=== PATIENT | female | born 1995 | race Caucasian/White ===

== ENCOUNTER 2017-11-05 10:27 | Outpatient (CLI) | payer OTHER ==
[2017-11-05 11:12] VITALS: BP 115/56; PULSE 96; RESP 16; TEMP 97.6
[2017-11-05 11:48] LABS: Appearance,Urine Clear (Clear); Bilirubin,Urine Negative (Negative); Blood,Urine Negative (Negative); Color,Urine Yellow; Glucose,Urine (UA) Negative (Negative); Ketones,Urine Negative (Negative); Leukocyte Esterase,Urine Moderate (Negative); Mucus,Urine Rare /hpf; Nitrite,Urine Negative (Negative); Protein,Urine Trace (Negative); RBC,Urine <1 /hpf (0-5); Specific Gravity,Urine 1.022 (1.001-1.035); Squamous Epithelial Cell,Urine 1 /hpf (0-4); Urobilinogen,Urine <2.0 mg/dL (<2.0); WBC,Urine 9 /hpf (0-5)
--- NOTE | 2017-11-17 07:00 | P.MSEPDOC ---
Presenting Problems - Arrival Data Date of Arrival on Unit: 11/05/17 Time of Arrival on Unit: 10:40 Mode of Transport: Ambulatory - Complaint OB-Reason for Admission/Chief Complaint: Possible Onset of Labor Medical History - Information : 3 Para: 2 Term: 2 : 0 Abortions: Spontaneous or Elective: 0 Number of Living Children: 2 - Gestational Age Gestational Age by SHERRON (wks/days): 26 Weeks and 3 Days - History Comment: stomach ? contx cramping all night. 26 weeks. pt fall a few days ago. did not hit abd. fell on hands and knees didnt report. did not hurt Review of Systems - Review of Systems Constitutional: No problems Breast: No problems ENT: No problems Cardiovascular: No problems Respiratory: No problems Gastrointestinal: No problems Genitourinary: No problems Musculoskeletal: No problems Neurological: No problems Skin: No problems Vital Signs - Temperature Temperature: 97.6 F Temperature Source: Tympanic - Pulse Apical Pulse Rate: 96 Pulse Assessment Method: Automatic Cuff - Respirations Respiratory Rate: 16 Oxygen Delivery Method: Room Air - Blood Pressure Right Arm Blood Pressure: 115/56 Blood Pressure Mean: 75 Blood Pressure Source: Automatic Cuff Medical Screen Scoring (Pre) - Uterine Contractions Frequency: N/A Duration: N/A Intensity: N/A - Maternal Vital Signs Maternal Temperature: N/A Maternal Blood Pressure: N/A Signs of Preeclampsia: N/A Maternal Respirations: N/A - Pain Assessment Pain Location and Character: Generalized, Abdomen Pain Scale Used: Numeric (1 - 10) Pain Intensity: 4 Pain Description: Cramping Pain Frequency: Intermittent Pain Behavior: Vocalization Pain Aggravating Factors: Activity, Standing - Maternal Trauma Maternal Trauma: N/A - Assessment Heart Rate - NICHD Category: Category I (Normal) = 0 Position: N/A Station: N/A - Total Score Total Score (Pre): 0 - Level of Risk Level of Risk: Low (0-5) Medical Screen Scoring (Post) - Cervical Exam Dilation: 0 cm = 0 Effacement: Exam Deferred Membranes: Intact - Uterine Contractions Frequency: N/A - Maternal Vital Signs Signs of Preeclampsia: N/A Maternal Respirations: N/A - Pain Assessment Pain Location and Character: Generalized, Abdomen Pain Scale Used: Numeric (1 - 10) Pain Intensity: 2 Pain Description: Cramping Pain Frequency: Intermittent - Maternal Trauma Maternal Trauma: N/A - Assessment Heart Rate: 150 Heart Rate - NICHD Category: Category I (Normal) = 0 - Total Score Total Score (Post): 0 - Post Treatment Level of Risk Post Treatment Level of Risk: Low (0-5) Physician Notification (Post) - Physician Notified Physician Notified Date: 11/05/17 Physician Notified Time: 12:30 Physician/Practitioner Notified:: rakel Spoke With: rakel New Order Received: (november discharge home with rx for keflex) - Notification Comment Comment: to see on tuesday for scheduled appt. return here if concerns before Disposition - Disposition OB Disposition: Discharge to home Discharge Date: 11/05/17 Discharge Time: 12:40 I agree with the RN Medical Screening Exam: Yes Risk & Benefit of care provided described in d/c instruction: Yes Diagnosis: FALSE LABOR BEFORE 37 COMPLETED WEEKS OF GEST, SECOND TRI
== END 2017-11-05 12:40 | disposition home or self-care (01) ==
LOC: FBPOP 10:27
PROVIDERS: ATTEND Obstetrics & Gynecology
DX: O47.03 False labor before 37 completed weeks of gestation, third trimester (principal); Z3A.26 26 weeks gestation of pregnancy
CPT/HCPCS: 82731; 81001; G0463; 99213

== ENCOUNTER → 2017-12-20 | Outpatient (CLI) | payer OTHER ==
[2017-12-20 12:21] LABS: HCT 34.4 % (34.0-46.0); HGB 11.7 gm/dL (11.4-16.0); MCHC 33.9 g/dL (31.0-37.0); MCV 88.4 fL (80.0-100.0); Mean Platelet Volume 7.4; Platelet Count 211 k/uL (150-450); RDW 13.8 % (11.5-15.5); WBC 13.2 k/uL (3.8-10.6)
== END | disposition home or self-care (01) ==
LOC: LABWHC1 11:09
PROVIDERS: ATTEND Obstetrics & Gynecology
DX: Z34.82 Encounter for supervision of other normal pregnancy, second trimester (principal); Z3A.00 Weeks of gestation of pregnancy not specified
CPT/HCPCS: 36415; 82950; 84443; 85027

== ENCOUNTER → 2017-12-23 | Outpatient (CLI) | payer SELFPAY ==
[2017-12-23 12:12] LABS: T4, Free (Free Thyroxine) 0.91 ng/dL (0.78-2.19)
[2017-12-23 12:28] LABS: Glucose 3 Hour, Gest 105 mg/dL
[2017-12-23 16:51] LABS: Thyroid Peroxidase Antibodies <28.0 U/mL (0.0-60.0)
== END | disposition home or self-care (01) ==
LOC: LABWHC1 08:25
PROVIDERS: ATTEND Obstetrics & Gynecology
DX: O24.419 Gestational diabetes mellitus in pregnancy, unspecified control (principal); O99.280 Endocrine, nutritional and metabolic diseases complicating pregnancy, unspecified trimester; E06.2 Chronic thyroiditis with transient thyrotoxicosis; Z3A.00 Weeks of gestation of pregnancy not specified
CPT/HCPCS: 36415; 82951; 82952; 84439; 84481; 86376; 86800

== ENCOUNTER 2017-12-28 15:24 | Outpatient (CLI) | payer SELFPAY ==
[2017-12-28 15:54] LABS: Appearance,Urine Clear (Clear); Bilirubin,Urine Negative (Negative); Blood,Urine Negative (Negative); Color,Urine Colorless; Glucose,Urine (UA) Negative (Negative); Ketones,Urine Negative (Negative); Leukocyte Esterase,Urine Negative (Negative); Nitrite,Urine Negative (Negative); Protein,Urine Negative (Negative); Specific Gravity,Urine 1.003 (1.001-1.035); Urobilinogen,Urine <2.0 mg/dL (<2.0)
[2017-12-28 16:49] VITALS: BP 131/61; PULSE 115; RESP 17; TEMP 97.7
--- NOTE | 2018-01-24 22:13 | P.MSEPDOC ---
Presenting Problems - Arrival Data Date of Arrival on Unit: 12/28/17 Time of Arrival on Unit: 15:25 Mode of Transport: Ambulatory - Complaint OB-Reason for Admission/Chief Complaint: Rule Out PROM Comment: Also presents with abdominal pressure, pelvic pressure, and back pressure. Medical History - Information : 3 Para: 2 Term: 2 : 0 Abortions: Spontaneous or Elective: 0 Number of Living Children: 2 - Gestational Age Gestational Age by SHERRON (wks/days): 34 Weeks and 0 Days - History Complications: Prior Review of Systems - Review of Systems Constitutional: No problems Breast: No problems ENT: No problems Cardiovascular: No problems Respiratory: No problems Gastrointestinal: No problems Genitourinary: No problems Musculoskeletal: No problems Neurological: No problems Skin: No problems Vital Signs - Temperature Temperature: 97.7 F Temperature Source: Temporal Artery Scan - Pulse Pulse Oximetery Pulse Rate: 115 Pulse Assessment Method: Pulse Oximetry - Respirations Respiratory Rate: 17 Oxygen Delivery Method: Room Air O2 Sat by Pulse Oximetry: 97 - Blood Pressure Right Arm Blood Pressure: 131/61 Blood Pressure Mean: 84 Blood Pressure Source: Automatic Cuff Medical Screen Scoring (Pre) - Cervical Exam Dilation: 0 cm = 0 Membranes: Intact - Uterine Contractions Frequency: N/A Duration: N/A Intensity: N/A - Maternal Vital Signs Maternal Temperature: N/A Maternal Blood Pressure: N/A Signs of Preeclampsia: N/A Maternal Respirations: N/A - Pain Assessment Pain Scale Used: Numeric (1 - 10) Pain Intensity: 0 - Maternal Trauma Maternal Trauma: N/A - Assessment Baseline FHR: 140 Heart Rate - NICHD Category: Category I (Normal) = 0 NST: Reactive Position: N/A Station: N/A - Total Score Total Score (Pre): 0 - Level of Risk Level of Risk: Low (0-5) Physician Notification (Pre) - Physician Notified Physician Notified Date: 12/28/17 Physician Notified Time: 16:20 Physician/Practitioner Notifed:: Ameya Spoke With: Ameya New Order Received: Yes (discharge home) Disposition - Disposition OB Disposition: Discharge to home Discharge Date: 12/28/17 Discharge Time: 16:25 I agree with the RN Medical Screening Exam: Yes Risk & Benefit of care provided described in d/c instruction: Yes Diagnosis: FALSE LABOR BEFORE 37 COMPLETED WEEKS OF GEST, THIRD TRI
== END 2017-12-28 16:25 | disposition home or self-care (01) ==
LOC: FBPOP 15:24
PROVIDERS: ATTEND Obstetrics & Gynecology
DX: O47.03 False labor before 37 completed weeks of gestation, third trimester (principal); Z3A.34 34 weeks gestation of pregnancy
CPT/HCPCS: 59025; 81003; 84112; 99213

== ENCOUNTER 2018-01-05 12:58 | Outpatient (CLI) | payer OTHER ==
[2018-01-05 14:35] VITALS: BP 124/59; PULSE 103; RESP 16; TEMP 98
--- NOTE | 2018-02-13 23:34 | P.MSEPDOC ---
Presenting Problems - Arrival Data Date of Arrival on Unit: 01/05/18 Time of Arrival on Unit: 12:55 Mode of Transport: Ambulatory Vital Signs - Temperature Temperature: 98 F Temperature Source: Oral - Pulse Right Brachial Pulse Rate: 103 Pulse Assessment Method: Automatic Cuff - Respirations Respiratory Rate: 16 Oxygen Delivery Method: Room Air O2 Sat by Pulse Oximetry: 98 - Blood Pressure Right Arm Blood Pressure: 124/59 Blood Pressure Mean: 80 Blood Pressure Source: Automatic Cuff Medical Screen Scoring (Post) - Cervical Exam Dilation: Exam Deferred Effacement: Exam Deferred - Uterine Contractions Frequency: N/A Duration: N/A Intensity: N/A - Maternal Vital Signs Maternal Temperature: N/A Maternal Blood Pressure: N/A Signs of Preeclampsia: N/A Maternal Respirations: N/A - Pain Assessment Pain Location and Character: Head Pain Scale Used: Numeric (1 - 10) Pain Intensity: 4 Pain Description: *Acute Pain Frequency: Occasional Pain Duration Units: Days Pain Behavior: None Exhibited Pain Aggravating Factors: None Pharmacological Interventions: Medication - Maternal Trauma Maternal Trauma: N/A - Assessment Heart Rate: 145 Heart Rate - NICHD Category: Category I (Normal) = 0 NST: Reactive Position: N/A Station: N/A - Total Score Total Score (Post): 0 - Post Treatment Level of Risk Post Treatment Level of Risk: Low (0-5) Physician Notification (Post) - Physician Notified Physician Notified Date: 01/05/18 Physician Notified Time: 13:26 Physician/Practitioner Notified:: magi Spoke With: magi New Order Received: Yes - Notification Comment Comment: monitor until reactive strip, pt may be discharged and seen in [place] if pt would like further evaluation Disposition - Disposition OB Disposition: Discharge to home Discharge Date: 01/05/18 Discharge Time: 14:15 I agree with the RN Medical Screening Exam: Yes Risk & Benefit of care provided described in d/c instruction: Yes Diagnosis: SHORTNESS OF BREATH
== END 2018-01-05 14:15 | disposition home or self-care (01) ==
LOC: FBPOP 12:58
PROVIDERS: ATTEND Obstetrics & Gynecology
DX: O26.899 Other specified pregnancy related conditions, unspecified trimester (principal); R06.02 Shortness of breath
CPT/HCPCS: 59025; 99213

== ENCOUNTER 2018-01-27 14:03 | Outpatient (CLI) | payer SELFPAY ==
[2018-01-27 14:47] VITALS: BP 115/65; PULSE 88; RESP 18; TEMP 99
--- NOTE | 2018-01-28 11:24 | P.MSEPDOC ---
Presenting Problems - Arrival Data Date of Arrival on Unit: 01/27/18 Time of Arrival on Unit: 14:03 Mode of Transport: Ambulatory - Complaint OB-Reason for Admission/Chief Complaint: Possible Onset of Labor, Rule Out SROM Medical History - Information : 3 Para: 2 Term: 2 : 0 Abortions: Spontaneous or Elective: 0 Number of Living Children: 2 - Gestational Age Gestational Age by SHERRON (wks/days): 38 Weeks and 2 Days - History Complications: Prior Review of Systems - Review of Systems Constitutional: No problems Breast: No problems ENT: No problems Cardiovascular: No problems Respiratory: No problems Gastrointestinal: Constipation Genitourinary: No problems Musculoskeletal: No problems Neurological: No problems Skin: No problems Vital Signs - Temperature Temperature: 99.0 F Temperature Source: Oral - Pulse Pulse Oximetery Pulse Rate: 88 Pulse Assessment Method: Pulse Oximetry - Respirations Respiratory Rate: 18 O2 Sat by Pulse Oximetry: 97 - Blood Pressure Right Arm Sitting Blood Pressure: 115/65 Blood Pressure Mean: 81 Blood Pressure Source: Automatic Cuff Medical Screen Scoring (Pre) - Cervical Exam Dilation: 0 cm = 0 Membranes: Intact - Uterine Contractions Frequency: Scheduled / = 6 Duration: > 40 seconds = 2 - Pain Assessment Pain Location and Character: Abdomen Pain Scale Used: Numeric (1 - 10) Pain Intensity: 1 Pain Description: *Acute, Pressure Pain Radiation Location: no Pain Frequency: Intermittent Pain Duration: 2 Pain Duration Units: Minutes Pain Behavior: None Exhibited - Maternal Trauma Maternal Trauma: N/A - Assessment Baseline FHR: 140 Heart Rate - NICHD Category: Category I (Normal) = 0 NST: Reactive Position: N/A Station: N/A - Total Score Total Score (Pre): 8 - Level of Risk Level of Risk: Medium (6-9) Medical Screen Scoring (Post) - Cervical Exam Dilation: 1-3 cm = 1 Effacement: Exam Deferred Membranes: Intact - Uterine Contractions Frequency: > or = 36 weeks =2 Duration: > 40 seconds = 2 Intensity: N/A - Maternal Vital Signs Maternal Temperature: N/A Maternal Blood Pressure: N/A Signs of Preeclampsia: N/A Maternal Respirations: N/A - Pain Assessment Pain Location and Character: Abdomen Pain Scale Used: Numeric (1 - 10) Pain Intensity: 4 Pain Management Goal: 0 Pain Description: Cramping Pain Radiation Location: n/a Pain Frequency: Intermittent Pain Duration: 1 Pain Duration Units: Hours Pain Behavior: Vocalization Effects of Pain: n/a Pain Aggravating Factors: Contractions Pharmacological Interventions: PRN Medication - Maternal Trauma Maternal Trauma: N/A - Assessment Heart Rate: 130 Heart Rate - NICHD Category: Category I (Normal) = 0 NST: Reactive Position: N/A Station: N/A - Total Score Total Score (Post): 5 - Post Treatment Level of Risk Post Treatment Level of Risk: Low (0-5) Physician Notification (Post) - Physician Notified Physician Notified Date: 01/27/18 Physician Notified Time: 15:42 Physician/Practitioner Notified:: Raymond Spoke With: Raymond New Order Received: Yes (discharge) Disposition - Disposition OB Disposition: Discharge to home Discharge Date: 01/27/18 Discharge Time: 15:45 I agree with the RN Medical Screening Exam: Yes Risk & Benefit of care provided described in d/c instruction: Yes Diagnosis: FALSE LABOR AT OR AFTER 37 COMPLETED WEEKS OF GESTATION
== END 2018-01-27 15:45 | disposition home or self-care (01) ==
LOC: FBPOP 14:03
PROVIDERS: ATTEND Obstetrics & Gynecology
DX: O47.1 False labor at or after 37 completed weeks of gestation (principal); Z3A.38 38 weeks gestation of pregnancy
CPT/HCPCS: 59025; 99213

== ENCOUNTER 2018-02-03 06:30 | Inpatient (IN) | payer OTHER ==
[2018-02-01 17:46] VITALS: BMI 41.1
[2018-02-03] MEDS ORDERED: LACTATED RINGERS 1,000 ML IV ONE (06:47)
[2018-02-03] MEDS ORDERED: ceFAZolin IN SWFI 2 GM/20 ML SYRINGE IVP ONE (06:47)
[2018-02-03] MEDS ORDERED: CITRIC ACID-SODIUM CITRATE 15 ML CUP PO ONE (06:47)
[2018-02-03] MEDS ORDERED: LACTATED RINGERS 1,000 ML IV SCH ×2 (07:00→09:00)
[2018-02-03 07:27] LABS: Basophils # (A) 0.1 k/uL (0-0.2); Basophils % (A) 1 %; Eosinophils # (A) 0.2 k/uL (0-0.7); Eosinophils % (A) 1 %; HCT 36.6 % (34.0-46.0); HGB 12.2 gm/dL (11.4-16.0); Lymphocytes # (A) 2.3 k/uL (1.0-4.8); Lymphocytes % (A) 17 %; MCH 28.6 pg (25.0-35.0); MCHC 33.4 g/dL (31.0-37.0); MCV 85.7 fL (80.0-100.0); Mean Platelet Volume 7.9; Monocytes # (A) 0.4 k/uL (0-1.0); Monocytes % (A) 3 %; Neutrophils # (A) 10.6 k/uL (1.3-7.7); Neutrophils % (A) 77 %; Platelet Count 227 k/uL (150-450); RBC 4.27 m/uL (3.80-5.40); RDW 14.2 % (11.5-15.5); WBC 13.7 k/uL (3.8-10.6)
[2018-02-03] MEDS ORDERED: PHENYLEPHRINE-0.9% NACL SYG 1 MG/10 ML SYRINGE ONE (08:03)
[2018-02-03] MEDS ORDERED: NALBUPHINE 10 MG/ML VIAL (10ML MDV) ONE (08:03)
[2018-02-03] MEDS ORDERED: ONDANSETRON 4 MG/2 ML VIAL ONE (08:03)
[2018-02-03] MEDS ORDERED: MORPHINE SULFATE (PF) 0.3 MG/0.3 ML SYR ONE (08:03)
[2018-02-03] MEDS ORDERED: OXYTOCIN 10 UNIT/ML 1 ML VIAL ONE (08:03)
[2018-02-03] MEDS ORDERED: KETOROLAC 30 MG/ML 1 ML VIAL ONE (08:03)
[2018-02-03] MEDS ORDERED: ZOLPIDEM 5 MG TAB PO PRN (08:46)
[2018-02-03] MEDS ORDERED: KETOROLAC 30 MG/ML 1 ML VIAL IVP PRN (08:46)
[2018-02-03] MEDS ORDERED: diphenhydrAMINE 50 MG CAP PO PRN (08:46)
[2018-02-03] MEDS ORDERED: METOCLOPRAMIDE 5 MG/ML 2 ML VIAL IVP PRN (08:46)
[2018-02-03] MEDS ORDERED: NALOXONE 0.4 MG/ML 1 ML VIAL IV PRN (08:46)
[2018-02-03] MEDS ORDERED: ONDANSETRON 4 MG/2 ML VIAL IVP PRN (08:46)
[2018-02-03] MEDS ORDERED: MEASLES-MUMPS-RUBELLA VACC/PF 12,500 UNIT/0.5 ML VIAL SQ ONE (08:46)
[2018-02-03] MEDS ORDERED: diphenhydrAMINE 25 MG CAP PO PRN (08:46)
[2018-02-03] MEDS ORDERED: diphenhydrAMINE 50 MG/ML 1 ML VIAL IVP PRN ×2 (08:46)
[2018-02-03] MEDS ORDERED: HYDROcodone/APAP 5-325MG 1 EACH TAB PO PRN (08:46)
--- NOTE | 2018-02-03 08:49 | P.HPOB ---
History of Present Illness H&P Date: 02/03/18 Chief Complaint: at term: Prior section Patient is a 23-year-old at 39 weeks gestation arise for repeat section. Her prior and this . B, K by macrosomia. She also had some thyroid abnormalities that have been reevaluated. No other significant findings during the pertinent labs did include O+ blood type Rh antibody was negative, rubella was immune, hepatitis B surface antigen as well as RPR and HIV were all negative. Her hemoglobin A1c was normal and she did pass her Glucola screen. Quad screen was also negative. Past Medical History Past Medical History: GERD/Reflux Additional Past Medical History / Comment(s): GERD WITH , CONSTIPATION. , CURRENT - SCHEDULED. enlarged thyroid History of Any Multi-Drug Resistant Organisms: None Reported Past Surgical History: Section Past Anesthesia/Blood Transfusion Reactions: No Reported Reaction Additional Past Anesthesia/Blood Transfusion Reaction / Comment(s): has never had anesthesia Past Psychological History: Anxiety Smoking Status: Former smoker Past Alcohol Use History: None Reported Additional Past Alcohol Use History / Comment(s): QUIT SMOKING 1 1/2 YEARS AGO, SMOKED FOR 1 YEAR. Past Drug Use History: None Reported - Past Family History Father Family Medical History: Myocardial Infarction (DC) Medications and Allergies Home Medications Medication Instructions Recorded Confirmed Type No Known Home Medications 01/27/18 02/03/18 History Allergies Allergy/AdvReac Type Severity Reaction Status Date / Time No Known Allergies Allergy Verified 02/03/18 06:47 Exam Osteopathic Statement: *. No significant issues noted on an osteopathic structural exam other than those noted in the History and Physical/Consult. Vital Signs Temp Pulse Resp BP Pulse Ox 02/03/18 06:49 96.1 F L 97 16 130/69 97 - OBG Physical Exam Breast: both: normal (no masses) Abdomen: bowel sounds normal, no diffuse tenderness, no bruit present, no guarding noted, no hepatomegaly, no splenomegaly, no mass Vulva: both: normal Vagina: normal moisture, no discharge Cervix: no lesion, no discharge Uterus: normal size, normal contour Adnexa: both: normal Anus/Rectum: normal perianal skin, no rectal mass, no hemorrhoids, heme negative Results Result Diagrams: 02/03/18 07:00 Abnormal Lab Results - Last 24 Hours (Table) 02/03/18 Range/Units 07:00 WBC 13.7 H (3.8-10.6) k/uL Neutrophils # 10.6 H (1.3-7.7) k/uL
--- NOTE | 2018-02-03 08:53 | P.OP ---
Date of Procedure: 02/03/18 Preoperative Diagnosis: Intrauterine 39 weeks: Prior section: Macrosomia Postoperative Diagnosis: Same Procedure(s) Performed: Repeat low transverse section Anesthesia: spinal Surgeon: Prem Andrade Coat Operator #1: Ailyn Winters Estimated Blood Loss (ml): 500 IV fluids (ml): 1,000 Urine output (ml): 200 Pathology: none sent Condition: stable Disposition: floor Operative Findings: Female scores of 8 and 9 at one and 5 minutes respectively and the weight was 9 lbs. 14 oz. Description of Procedure: Patient was taken to the operating suite where a spinal anesthetic was found be adequate. She was prepped and draped in normal sterile fashion and placed in the dorsal supine position with leftward tilt. She was very anxious during this process and there is question is whether not the spine was going little bit high. She was given supplemental oxygen but was able to tolerate the remainder the procedure under spinal anesthetic. Initially a Pfannenstiel skin incision was made and this incision was then carried through to underlying layer of the fascia with the second knife. Fascia was then nicked in the midline and this opening was extended laterally with Bowen scissors. Superior and inferior aspect of this incision were then grasped tented up and bluntly and sharply dissected off the rectus muscles. Rectus muscles were then divided midline and blunt dissection the peritoneum was made. This opening was then extended superiorly and inferiorly with good visualization of both bowel bladder. Bladder blade was then placed and the vesicouterine peritoneum was identified and entered with Metzenbaum scissors. This opening was then extended across the face of the uterus with the Metzenbaum scissors and bladder flap was digitally created. Knife was then used to incise uterus and this opening was extended bluntly. Clear fluid is noted. Head was then H medically delivered from left occiput anterior position shoulders were easily delivered out nares bulb suctioned once baby was fully delivered umbilical cord was clamped and cut in usual fashion an nursery personnel was present to assume care. Placenta was then delivered intact and Pitocin was added to the IV. Uterus was then exteriorized cleared of clots and debris and closed in 2 layers with 0 Vicryl suture. Once excellent hemostasis was obtained blood and debris was suctioned from the posterior cul-de-sac and uterus was reinserted into the abdomen. Peritoneal layer was then reapproximated with 0 Vicryl suture fascial layer was closed with 0 Vicryl suture one layer of 3-0 Vicryl was placed in deep subcuticular tissues and the skin was then closed with 3-0 Vicryl suture. Sponge, lap, needle counts were all correct 2. A she was then taken to the recovery room in stable and satisfactory condition.
[2018-02-03] MEDS: SENNOSIDES-DOCUSATE SODIUM 1 EACH TAB PO SCH (22:12)
[2018-02-04] MEDS: IBUPROFEN 600 MG TAB PO PRN ×3 (02:45→15:47)
[2018-02-04 08:07] LABS: Basophils # (A) 0.1 k/uL (0-0.2); Basophils % (A) 0 %; Eosinophils # (A) 0.1 k/uL (0-0.7); Eosinophils % (A) 1 %; HCT 33.2 % (34.0-46.0); Lymphocytes # (A) 2.1 k/uL (1.0-4.8); Lymphocytes % (A) 16 %; MCH 28.9 pg (25.0-35.0); MCHC 33.2 g/dL (31.0-37.0); MCV 86.9 fL (80.0-100.0); Mean Platelet Volume 7.6; Monocytes # (A) 0.5 k/uL (0-1.0); Monocytes % (A) 4 %; Neutrophils % (A) 78 %; Platelet Count 217 k/uL (150-450); RBC 3.82 m/uL (3.80-5.40); RDW 14.5 % (11.5-15.5); WBC 12.9 k/uL (3.8-10.6)
[2018-02-04] MEDS: SENNOSIDES-DOCUSATE SODIUM 1 EACH TAB PO SCH ×2 (08:55→19:25)
--- NOTE | 2018-02-04 11:14 | P.PNOBGPC ---
Subjective - Subjective Principal diagnosis: Status post section postoperative day #1 Interval history: Patient is doing well. She is ambulating. She has not passed flatus or bowel movement yet. She is urinating. Lochia is decreasing. She is working on breast-feeding. Pain is fairly well controlled at this time. Patient reports: Reports appetite normal, Reports voiding normally, Reports pain well controlled, Reports ambulating normally : doing well, bottle feeding Objective - Vital Signs Latest vital signs: Vital Signs Temp Pulse Resp BP Pulse Ox 02/04/18 08:00 97.8 F 76 16 103/66 02/04/18 03:59 97.6 F 82 16 102/59 98 02/04/18 00:00 98.5 F 75 16 113/64 02/03/18 20:00 98.4 F 74 16 117/66 02/03/18 15:37 97.2 F L 67 14 121/56 02/03/18 12:00 97.8 F 76 14 112/54 96 Intake and Output 02/03/18 02/04/18 02/04/18 22:59 06:59 14:59 Intake Total 1500 Output Total 950 800 Balance 550 -800 Intake: Intake, IV Titration 1500 Amount Lactated Ringers 1,000 ml 1500 @ 125 mls/hr IV .Q8H [facility] Rx#:[id number] Output: Urine 950 800 Other: Voiding Method Indwelling Catheter # Voids 1 - Exam Extremities: Present: normal. Absent: tenderness Abdomen: Present: normal appearance, soft (Positive bowel sounds 4). Absent: distention, tenderness Incision: Present: normal, dry, intact. Absent: erythematous Uterus: Present: normal, firm. Absent: tenderness - Labs Labs: Abnormal Lab Results - Last 24 Hours (Table) 02/04/18 Range/Units 07:26 WBC 12.9 H (3.8-10.6) k/uL Hgb 11.0 L (11.4-16.0) gm/dL Hct 33.2 L (34.0-46.0) % Neutrophils # 10.0 H (1.3-7.7) k/uL Assessment and Plan Assessment: Status post section postoperative day #1 Plan: Continue with postoperative care. Encouraged ambulation. Will advance diet as tolerated after flatus.
--- NOTE | 2018-02-04 18:57 | P.PN ---
Progress Note - Text Progress Note Date: 02/04/18 Postoperative day 1 status post section under spinal anesthesia, and intrathecal morphine given for postoperative analgesia, patient doing well, there is no anesthesia related complications, Patient had no headache, vital signs stable , Assessment and plan= postop day 1 status post , doing well there is no anesthesia related complication.
[2018-02-04] MEDS: ACETAMINOPHEN TAB 325 MG TAB PO PRN (19:24)
[2018-02-05] MEDS: IBUPROFEN 600 MG TAB PO PRN ×2 (00:12→12:24)
--- NOTE | 2018-02-05 03:31 | P.DS ---
Providers Date of admission: 02/03/18 06:30 Expected date of discharge: 02/05/18 Attending physician: Prem Andrade Primary care physician: Stated None Hospital Course: This is a 23-year-old female 3 para 2 at 39-0/7 weeks who presented for scheduled repeat section. She underwent a repeat low transverse section under spinal Duramorph anesthesia. She delivered a viable female with scores of 8 at 1 minute and 9 at 5 minutes and weight of 9 lbs. 14 oz. Her postoperative and course have been uncomplicated. Her pain is fairly well controlled with ibuprofen and regular Tylenol. Lochia is decreasing. She is passing flatus. She is bottle feeding. Vital signs are stable. Abdomen soft with positive bowel sounds 4. Incision is clean dry and intact. Extremities show negative Homans. Impression is status post repeat section postoperative day #2. Plan is to discharge home today. Routine postoperative and instructions are given. She is advised to follow up with Dr. Andrade in the office in approximately 1 week for a postoperative check and in 6 weeks for a check. She is advised to call the office if she has any further questions or concerns prior to her appointment times. She will be given a prescription for ibuprofen. Procedures: Repeat low transverse section on 02/03/2018 Patient Condition at Discharge: Stable Plan - Discharge Summary Discharge Rx Participant: No New Discharge Prescriptions: New Ibuprofen [Motrin] 600 mg PO Q6HR PRN #60 tab PRN Reason: Mild Pain Or Fever >= 100.5 Discharge Medication List Ibuprofen [Motrin] 600 mg PO Q6HR PRN #60 tab 02/05/18 [Rx] Follow up Appointment(s)/Referral(s): Prem Andrade DO [Doctor of Osteopathic Medicine] - 1 Week Activity/Diet/Wound Care/Special Instructions: Instructions 1. Do not begin any exercise program for 3 weeks. 2. Do not resume sexual relations for 3 weeks or longer if uncomfortable. 3. You may take tub baths or showers at any time. 4. You may use tampons if desired after 3 weeks. 5. Keep the area of episiotomy (stitches) clean and dry. 6. If you are not nursing, wear a good fitting, supportive bra during the day and limit fluid intake for at least 1 week to prevent breast engorgement. 7. Call the office, [phone], within the next week to make appointment for your 6 week checkup if it has not already been made. 8. Report any of the following occurrences to the doctor promptly: a. Heavy, excessive bleeding b. Chills, fever c. Burning or frequency of urination d. Pain or redness and breasts if nursing e. Increasing pain or swelling in episiotomy (stitches). In addition to the above instructions, the following additional should be followed: 1. No heavy lifting or straining (exercising) until after 6 week checkup. 2. Keep abdominal incision clean and dry: You may wear a dressing if more comfortable. 3. Make office appointment for 10 days after going home or as instructed by her doctor. Discharge Disposition: HOME SELF-CARE
[2018-02-05] MEDS: ACETAMINOPHEN TAB 325 MG TAB PO PRN (05:55)
[2018-02-05 10:13] VITALS: BP 126/74; PULSE 91; RESP 18; TEMP 98.5
[2018-02-05] MEDS: SENNOSIDES-DOCUSATE SODIUM 1 EACH TAB PO SCH (10:14)
== END 2018-02-05 13:15 | disposition home or self-care (01) | DRG 766 ==
LOC: 4FBP 06:30
PROVIDERS: ADMIT Obstetrics & Gynecology; ATTEND Obstetrics & Gynecology
PROC: 10D00Z1 Extraction of Products of Conception, Low, Open Approach (ICD-10-PCS; principal; 2018-02-03 08:00)
DX: O34.211 Maternal care for low transverse scar from previous cesarean delivery (principal); K21.9 Gastro-esophageal reflux disease without esophagitis; K59.00 Constipation, unspecified; O99.62 Diseases of the digestive system complicating childbirth; Z37.0 Single live birth; Z3A.39 39 weeks gestation of pregnancy; Z87.891 Personal history of nicotine dependence
CPT/HCPCS: 85025; 86850; 86900; 86901

== ENCOUNTER → 2018-10-17 | Outpatient (CLI) | payer OTHER ==
[2018-10-17 11:27] LABS: HCT 39.6 % (34.0-46.0); HGB 12.9 gm/dL (11.4-16.0); MCH 28.4 pg (25.0-35.0); MCHC 32.7 g/dL (31.0-37.0); MCV 86.9 fL (80.0-100.0); Mean Platelet Volume 7.6; Platelet Count 222 k/uL (150-450); RBC 4.55 m/uL (3.80-5.40); RDW 14.2 % (11.5-15.5); WBC 12.2 k/uL (3.8-10.6)
[2018-10-17 16:40] LABS: HIV 1 AB Non-Reactive (Non-Reactive); HIV AB P24 Non-Reactive (Non-Reactive); HIV P24 AG Non-Reactive (Non-Reactive)
[2018-10-17 19:22] LABS: Hemoglobin A1C 5.3 % (4.0-6.0)
== END | disposition home or self-care (01) ==
LOC: LABWHC1 09:14
PROVIDERS: ATTEND Obstetrics & Gynecology
DX: Z34.02 Encounter for supervision of normal first pregnancy, second trimester (principal)
CPT/HCPCS: 36415; 82950; 83036; 85027; 86762; 86780; 86850; 86900; 86901; 87086; 87340; 87390

== ENCOUNTER 2018-11-07 11:03 | Outpatient (CLI) | payer OTHER ==
[2018-11-07 11:31] VITALS: BP 115/56; PULSE 76; RESP 16; TEMP 98.7
[2018-11-07 12:28] LABS: Appearance,Urine Clear (Clear); Bacteria,Urine Rare /hpf; Bilirubin,Urine Negative (Negative); Blood,Urine Negative (Negative); Color,Urine Light Yellow; Glucose,Urine (UA) Negative (Negative); Ketones,Urine Negative (Negative); Leukocyte Esterase,Urine Trace (Negative); Mucus,Urine Rare /hpf; Nitrite,Urine Negative (Negative); PH, Urine 5.5 (5.0-8.0); Protein,Urine Negative (Negative); Specific Gravity,Urine 1.009 (1.001-1.035); Squamous Epithelial Cell,Urine 1 /hpf (0-4); Urobilinogen,Urine <2.0 mg/dL (<2.0); WBC,Urine 2 /hpf (0-5)
--- NOTE | 2018-11-17 09:56 | P.MSEPDOC ---
Presenting Problems - Arrival Data Date of Arrival on Unit: 11/07/18 Time of Arrival on Unit: 11:14 Mode of Transport: Ambulatory - Complaint OB-Reason for Admission/Chief Complaint: Other Comment: pt arrived c/o cramping. pt states her and her familoy all had the flu a few days ago. pt denies any bleeding. abd soft and nontender Medical History - Information : 4 Para: 3 Term: 3 : 0 Abortions: Spontaneous or Elective: 0 Number of Living Children: 3 - Gestational Age Gestational Age by SHERRON (wks/days): 20 Weeks and 5 Days - History Complications: Prior , Smoker Review of Systems - Review of Systems Constitutional: No problems Breast: No problems ENT: No problems Cardiovascular: No problems Respiratory: No problems Gastrointestinal: No problems Genitourinary: No problems Musculoskeletal: No problems Neurological: No problems Skin: No problems Vital Signs - Temperature Temperature: 98.7 F Temperature Source: Oral - Pulse Right Brachial Pulse Rate: 76 Pulse Assessment Method: Automatic Cuff - Respirations Respiratory Rate: 16 Oxygen Delivery Method: Room Air O2 Sat by Pulse Oximetry: 95 - Blood Pressure Right Arm Blood Pressure: 115/56 Blood Pressure Mean: 75 Blood Pressure Source: Automatic Cuff Medical Screen Scoring (Post) - Cervical Exam Dilation: Exam Deferred Effacement: Exam Deferred Membranes: Intact - Uterine Contractions Frequency: N/A Duration: N/A Intensity: N/A - Maternal Vital Signs Maternal Temperature: N/A Maternal Blood Pressure: N/A Signs of Preeclampsia: N/A Maternal Respirations: N/A - Pain Assessment Pain Location and Character: Abdomen Pain Scale Used: Numeric (1 - 10) Pain Intensity: 3 Pain Management Goal: 2 Pain Description: Cramping Pain Radiation Location: n/a Pain Frequency: Occasional Pain Behavior: Vocalization Pain Aggravating Factors: Position Non-Pharmacological Interventions: Relaxation Technique - Maternal Trauma Maternal Trauma: N/A - Assessment Heart Rate: 140 Heart Rate - NICHD Category: Category I (Normal) = 0 Position: N/A Station: N/A - Total Score Total Score (Post): 0 - Post Treatment Level of Risk Post Treatment Level of Risk: Low (0-5) Physician Notification (Post) - Physician Notified Physician Notified Date: 11/07/18 Physician Notified Time: 12:40 Spoke With: dr rodriguez New Order Received: Yes - Notification Comment Comment: May discharge to home. clean catch u/a done with no abnormality Disposition - Disposition OB Disposition: Discharge to home Discharge Date: 11/07/18 Discharge Time: 12:45 I agree with the RN Medical Screening Exam: Yes Risk & Benefit of care provided described in d/c instruction: Yes Diagnosis: RELATED CONDITIONS, UNSPECIFIED, SECOND TRIMESTER
== END 2018-11-07 12:45 | disposition home or self-care (01) ==
LOC: FBPOP 11:03
PROVIDERS: ATTEND Obstetrics & Gynecology
DX: O26.92 Pregnancy related conditions, unspecified, second trimester (principal); Z3A.20 20 weeks gestation of pregnancy
CPT/HCPCS: 81001; G0463; 99213

== ENCOUNTER 2019-03-13 14:57 | Outpatient (CLI) | payer OTHER ==
[2019-03-13 15:33] VITALS: BP 120/60; PULSE 98; RESP 14; TEMP 98.4
--- NOTE | 2019-03-18 12:44 | P.MSEPDOC ---
Presenting Problems - Arrival Data Date of Arrival on Unit: 03/13/19 Time of Arrival on Unit: 15:00 Mode of Transport: Ambulatory - Complaint OB-Reason for Admission/Chief Complaint: Other Comment: cramping Medical History - Information : 4 Para: 3 Term: 3 : 0 Abortions: Spontaneous or Elective: 0 Number of Living Children: 3 - Gestational Age Gestational Age by SHERRON (wks/days): 38 Weeks and 5 Days - History Complications: Prior , Smoker Review of Systems - Review of Systems Constitutional: No problems Breast: No problems ENT: No problems Cardiovascular: No problems Respiratory: No problems Gastrointestinal: No problems Genitourinary: No problems Musculoskeletal: No problems Neurological: No problems Skin: No problems Vital Signs - Temperature Temperature: 98.4 F Temperature Source: Oral - Pulse Pulse Oximetery Pulse Rate: 98 Pulse Assessment Method: Pulse Oximetry - Respirations Respiratory Rate: 14 Oxygen Delivery Method: Room Air - Blood Pressure Right Arm Blood Pressure: 120/60 Blood Pressure Mean: 80 Blood Pressure Source: Automatic Cuff Physician Notification (Pre) - Physician Notified Physician Notified Date: 03/13/19 Physician Notified Time: 15:31 Physician/Practitioner Notifed:: michael Spoke With: michael New Order Received: Yes - Notification Comment Comment: reported pts visit with c/o of cramping, scheduled section this Medical Screen Scoring (Post) - Cervical Exam Dilation: 0 cm = 0 Membranes: Intact - Uterine Contractions Frequency: N/A Duration: N/A Intensity: N/A - Maternal Vital Signs Maternal Temperature: N/A Maternal Blood Pressure: N/A Signs of Preeclampsia: N/A Maternal Respirations: N/A - Maternal Trauma Maternal Trauma: N/A - Assessment - Baby A Heart Rate: 145 Heart Rate - NICHD Category: Category I (Normal) = 0 NST: Reactive Position: N/A Station: N/A - Total Score Total Score - Baby A: 0 Total Score - Baby B: 0 Total Score - Baby C: 0 - Post Treatment Level of Risk Post Treatment Level of Risk - Baby A: Low (0-5) Post Treatment Level of Risk - Baby B: Low (0-5) Post Treatment Level of Risk - Baby C: Low (0-5) Physician Notification (Post) - Physician Notified Physician Notified Date: 03/13/19 Physician Notified Time: 15:41 Physician/Practitioner Notified:: michael Spoke With: michael New Order Received: Yes - Notification Comment Comment: reported cervix closed, no bleeding, rare contractions, reactive strip, scheduled repeat section tuesday. dr discharges pt home Disposition - Disposition OB Disposition: Discharge to home Discharge Date: 03/13/19 Discharge Time: 15:59 I agree with the RN Medical Screening Exam: Yes Risk & Benefit of care provided described in d/c instruction: Yes Diagnosis: FALSE LABOR AT OR AFTER 37 COMPLETED WEEKS OF GESTATION
== END 2019-03-13 15:45 | disposition home or self-care (01) ==
LOC: FBPOP 14:57
PROVIDERS: ATTEND Obstetrics & Gynecology
DX: O47.1 False labor at or after 37 completed weeks of gestation (principal); O99.333 Smoking (tobacco) complicating pregnancy, third trimester; F17.200 Nicotine dependence, unspecified, uncomplicated; Z3A.38 38 weeks gestation of pregnancy
CPT/HCPCS: 59025; G0463; 99213

== ENCOUNTER 2019-03-15 06:45 | Inpatient (IN) | payer OTHER ==
[2019-03-15] MEDS ORDERED: CITRIC ACID-SODIUM CITRATE 15 ML CUP PO ONE (07:00)
[2019-03-15] MEDS ORDERED: BUTORPHANOL 1 MG/ML 1 ML VIAL IV PRN (07:05)
[2019-03-15 07:11] VITALS: BMI 40.4
[2019-03-15] MEDS ORDERED: LACTATED RINGERS 1,000 ML IV SCH ×3 (07:15→09:00)
[2019-03-15 07:31] LABS: Basophils # (A) 0.1 k/uL (0-0.2); Basophils % (A) 0 %; Eosinophils # (A) 0.4 k/uL (0-0.7); Eosinophils % (A) 2 %; HCT 41.6 % (34.0-46.0); Lymphocytes # (A) 3.9 k/uL (1.0-4.8); Lymphocytes % (A) 20 %; MCH 29.9 pg (25.0-35.0); MCHC 33.7 g/dL (31.0-37.0); MCV 88.8 fL (80.0-100.0); Mean Platelet Volume 7.3; Monocytes # (A) 0.5 k/uL (0-1.0); Monocytes % (A) 3 %; Neutrophils # (A) 14.7 k/uL (1.3-7.7); Neutrophils % (A) 74 %; Platelet Count 334 k/uL (150-450); RBC 4.68 m/uL (3.80-5.40); RDW 13.6 % (11.5-15.5); WBC 19.8 k/uL (3.8-10.6)
--- NOTE | 2019-03-15 07:39 | P.HPOB ---
History of Present Illness H&P Date: 03/15/19 Chief Complaint: 39-0/7 weeks, previous section 2, labor The patient is a 24-year-old 4 para 3003 with 2 previous sections who presents to labor and delivery in active labor all signs reassuring. Her has been essentially incompetent though she did present late for care. She has requested tubal ligation be done intraoperatively with her section and signed consent to that effect. She understands that this is a permanent procedure as well as its potential failure rate and risk for ectopic . Lastly she was found to have group B strep colonization in her urine. Obstetrical history 4 para 3003 with 1 term vaginal delivery followed by 2 sections, now requesting a third. Current statistics are listed in history of present illness. EDC of 03/22/2019 was established by last menstrual period and confirmed by seven-week ultrasound. Laboratory workup demonstrates a blood type of O+ with a negative antibody screen. Rubella status is immune. The remainder of the laboratory workup was within normal limits aside from the group B strep positivity in the urine. Early Glucola was within normal limits as was second trimester Glucola. And cut history: Unremarkable with no history of any infections to include STDs. Review of Systems Review of systems is confined to history of present illness. Past Medical History Past Medical History: No Reported History Additional Past Medical History / Comment(s): GERD WITH , CONSTIPATION., CURRENT - SCHEDULED. enlarged thyroid History of Any Multi-Drug Resistant Organisms: None Reported Past Surgical History: Section Additional Past Surgical History / Comment(s): x3 Past Anesthesia/Blood Transfusion Reactions: Postoperative Nausea & Vomiting (PONV) Additional Past Anesthesia/Blood Transfusion Reaction / Comment(s): "high spinal last time" Past Psychological History: Anxiety Additional Psychological History / Comment(s): on celexa Smoking Status: Current every day smoker Past Alcohol Use History: None Reported Additional Past Alcohol Use History / Comment(s): QUIT SMOKING 1 1/2 YEARS AGO, SMOKED FOR 1 YEAR. Past Drug Use History: None Reported - Past Family History Father Family Medical History: Myocardial Infarction ([place]) Medications and Allergies Home Medications Medication Instructions Recorded Confirmed Type Citalopram Hydrobromide [CeleXA] 0.5 tab PO BID 03/13/19 03/15/19 History Allergies Allergy/AdvReac Type Severity Reaction Status Date / Time No Known Allergies Allergy Verified 03/15/19 06:59 Exam Vital Signs Temp Pulse Resp BP Pulse Ox 03/15/19 07:07 96.6 F L 62 18 133/65 98 Intake and Output 03/14/19 03/15/19 03/15/19 22:59 06:59 14:59 Other: Weight 97.069 kg In general, this is a well-developed, well-nourished white female in some distress as she is in active labor. Her heart has a regular rhythm and rate without murmur. Her lungs are clear to auscultation bilaterally in all hoyt. Her abdomen is gravid, nondistended, has normal active bowel sounds, soft, nontender, and without any palpable masses aside from uterine fundus. Her extremities are without any cyanosis, clubbing, or significant edema and are nontender to palpation. Digital cervical examination performed by the nursing staff to straight scissors to be 5-6 cm dilated, 50% effaced, vertex presentation at -2 station. Results Result Diagrams: 03/15/19 07:11 Abnormal Lab Results - Last 24 Hours (Table) 03/15/19 Range/Units 07:11 WBC 19.8 H (3.8-10.6) k/uL Neutrophils # 14.7 H (1.3-7.7) k/uL Assessment and Plan (1) Previous section Current Visit: Yes Status: Acute Code(s): Z98.891 - HISTORY OF UTERINE SCAR FROM PREVIOUS SURGERY SNOMED Code(s): 125708483 (2) Family planning Current Visit: Yes Status: Acute Code(s): Z30.09 - ENCOUNTER FOR OT GENERAL CNSL AND ADVICE ON CONTRACEPTION SNOMED Code(s): 735204557 (3) Active labor at term Current Visit: Yes Status: Acute Code(s): VLQ0391 - SNOMED Code(s): 05897607 Plan: The patient is admitted in labor and will be taken the operating room where she will undergo repeat low transverse section with intraoperative bilateral tubal occlusion using Filshie clips. The risks and complications the procedure been thoroughly discussed and she has understood and agreed to proceed. She has reconfirmed her desire to have intraoperative tubal ligation.
[2019-03-15] MEDS ORDERED: ePHEDrine SULFATE/0.9% NACL/PF 50 MG/5 ML SYRINGE IV ONE (07:40)
[2019-03-15] MEDS ORDERED: LACTATED RINGERS 1,000 ML BAG IV ONE (07:40)
[2019-03-15] MEDS ORDERED: NALBUPHINE 10 MG/ML (1 ML AMP) ONE (07:40)
[2019-03-15] MEDS ORDERED: KETOROLAC 30 MG/ML 1 ML VIAL ONE (07:40)
[2019-03-15] MEDS ORDERED: MORPHINE SULFATE (PF) 0.3 MG/0.3 ML SYR ONE (07:40)
[2019-03-15] MEDS ORDERED: OXYTOCIN 10 UNIT/ML 1 ML VIAL ONE (07:40)
[2019-03-15] MEDS ORDERED: ONDANSETRON 4 MG/2 ML VIAL ONE (07:40)
[2019-03-15] MEDS ORDERED: diphenhydrAMINE 25 MG CAP PO PRN (08:47)
[2019-03-15] MEDS ORDERED: NALOXONE 0.4 MG/ML 1 ML VIAL IV PRN ×2 (08:47→09:33)
[2019-03-15] MEDS ORDERED: diphenhydrAMINE 50 MG CAP PO PRN (08:47)
[2019-03-15] MEDS ORDERED: HYDROcodone/APAP 7.5-325MG 1 EACH TAB PO PRN (08:47)
[2019-03-15] MEDS ORDERED: diphenhydrAMINE 50 MG/ML 1 ML VIAL IVP PRN ×3 (08:47→09:33)
[2019-03-15] MEDS ORDERED: ONDANSETRON 4 MG/2 ML VIAL IVP PRN ×2 (08:47→09:33)
[2019-03-15] MEDS ORDERED: KETOROLAC 30 MG/ML 1 ML VIAL IVP PRN ×2 (08:47→09:33)
[2019-03-15] MEDS ORDERED: HYDROcodone/APAP 5-325MG 1 EACH TAB PO PRN (08:47)
[2019-03-15] MEDS ORDERED: METOCLOPRAMIDE 5 MG/ML 2 ML VIAL IVP PRN (08:47)
[2019-03-15] MEDS ORDERED: LANOLIN CREAM 5 GM TUBE TOPICAL PRN (08:47)
[2019-03-15] MEDS ORDERED: ZOLPIDEM 5 MG TAB PO PRN (08:47)
--- NOTE | 2019-03-15 08:58 | P.OP ---
Date of Procedure: 03/15/19 Preoperative Diagnosis: #1. 39-0/7 weeks, previous section x2, active labor #2. Undesired fertility Postoperative Diagnosis: Same Procedure(s) Performed: #1. Repeat low transverse section #2. Intraoperative bilateral tubal occlusion with Filshie clips Anesthesia: spinal Surgeon: Palmer Lenz Route Manager #1: Alcira Dias Estimated Blood Loss (ml): 750 IV fluids (ml): 1,000 Urine output (ml): 200 Pathology: none sent Condition: stable Disposition: PACU Operative Findings: Intraoperatively there was fairly dense scarring through the anterior abdominal wall and into the abdomen. The lower uterine segment was extraordinarily thin and opened of with pressure only using a laparotomy sponge after reflecting the bladder flap. She was delivered of a viable 7 lbs. 13 oz. baby girl with Apgars of 9 at 1 minute and 9 at 5 minutes in the occiput anterior position. The placenta was delivered manually, intact, and grossly normal with a grossly normal three-vessel cord. There was some moderate bleeding at both angles of the incision which was controlled with several flakzu-ej-imxqo stitches at each angle. Urine was clear throughout the entire case. FloSeal was applied to the entire incisional bed at the end of the case. The uterus, tubes, and ovaries were entirely normal to inspection otherwise though there was an omental adhesion to the left lower uterine segment which was lysed with the Bovie during the case. The layer of muscles was relatively raw secondary to the scarring entering the abdomen and the oozed somewhat. Description of Procedure: The patient was prepped and draped in usual fashion after spinal anesthesia was administered by the anesthesiologist. A Pfannenstiel incision was made through pre-existing scar and extended into the abdominal Cavity with a moderate amount of scarring noted throughout all the layers to enter the abdomen. The rectus muscles were densely adherent in the midline and opened sharply. The bladder peritoneum was relatively high and was therefore elevated, incised, and reflected distally. In the process of reflecting the bladder the lower uterine segment opened to reveal clear fluid. The incision was extended bluntly and the head encountered within the field. It was elevated up through the incision where the nose and mouth were thoroughly suctioned. The remainder of the was delivered onto the field where the cord was doubly clamped, cut, and the passed resuscitative measures with weight and Apgars as noted above. A segment of cord was doubly clamped, cut, and set aside should cord gases become necessary after collecting cord blood for evaluation for ABO incompatibility. The placenta was delivered manually and intact as noted above. The uterus was exteriorized and the interior cavity of the uterus swept of any remaining placental or membranous fragments. The margins of the incision were grasped with Licea clamps and the incision closed with a single running locking stitch of 0 chromic catgut proceeding from margin to margin. The right angle was noted to have some ongoing bleeding where a large sinuses had been noted and was made hemostatic with several tbqmfe-tm-ysdvq sutures of 0 chromic catgut. The left angle at that time was noted to be hemostatic. Urine remained clear throughout the entire portion of the case to this point and in the future. The patient was again questioned regarding tubal ligation and requested to have tubal occlusion with Filshie clips. The clips were utilized and placed across the isthmic portion of the fallopian tube approximately 2-3 cm from the cornu on each side where they were firmly affixed. The uterus was replaced within the abdominal cavity and the gutters swept of any remaining blood, fluid, or clot. The patient continued to complain of significant anxiety and the some difficulty was encountered in continuing to have adequate exposure to examine the uterine incision. There was some ongoing bleeding at the left angle which was ultimately controlled with 2 fiybjd-ab-qdjwk stitches of 0 chromic catgut. There was some generalized oozing along the entire bed which was thought to be insignificant but nonetheless was treated by placing FloSeal across the entire bed of the incision after having insured adequate hemostasis prior to that. The parietal peritoneum was then loosely reapproximated and layer of muscles made hemostatic with the Bovie. Again there was significant ongoing oozing from multiple different sites secondary to previous scarring. None of it could be specifically controlled of with Bovie or stitches. The fascia was closed with 2 running stitches of 0 Vicryl proceeding from lateral margins to the midpoint. The subcutaneous tissues were irrigated, made hemostatic with the Bovie, and reapproximated with a running stitch of 30 plain catgut. The skin was reapproximated with a running subcuticular stitch of 4-0 Vicryl proceeding from margin to margin. This was followed by half-inch Steri-Strips placed with Mastisol. Estimated blood loss for the case was approximate 750 mL. There were no complications. All sponge, instrument, and needle counts were correct. The patient tolerated the procedure well and proceeded to the recovery room in stable condition. Urine again remained clear throughout the entire case and at the end of the case. Both mother and infant are resting comfortably in recovery.
[2019-03-15] MEDS ORDERED: OXYTOCIN 20 UNITS/1000 ML NS 1,000 ML IV SCH (09:00)
[2019-03-15] MEDS ORDERED: NALBUPHINE 10 MG/ML (1 ML AMP) IV PRN (09:33)
[2019-03-15] MEDS ORDERED: HYDROmorphone 0.5 MG/0.5 ML SYRINGE IVP PRN (09:33)
[2019-03-15] MEDS: IBUPROFEN 600 MG TAB PO PRN (20:28)
[2019-03-15] MEDS: CITALOPRAM HYDROBROMIDE 10 MG TAB PO SCH (20:29)
[2019-03-15] MEDS: SENNOSIDES-DOCUSATE SODIUM 1 EACH TAB PO SCH (20:29)
[2019-03-15] MEDS: ACETAMINOPHEN TAB 325 MG TAB PO PRN (23:48)
[2019-03-16] MEDS: IBUPROFEN 600 MG TAB PO PRN ×3 (04:20→18:44)
[2019-03-16 07:46] LABS: Basophils % (A) 0 %; Eosinophils # (A) 0.2 k/uL (0-0.7); Eosinophils % (A) 1 %; HCT 37.7 % (34.0-46.0); HGB 12.5 gm/dL (11.4-16.0); Lymphocytes # (A) 2.1 k/uL (1.0-4.8); Lymphocytes % (A) 13 %; MCH 29.9 pg (25.0-35.0); MCHC 33.3 g/dL (31.0-37.0); MCV 89.8 fL (80.0-100.0); Mean Platelet Volume 7.8; Monocytes # (A) 0.4 k/uL (0-1.0); Monocytes % (A) 3 %; Neutrophils # (A) 12.9 k/uL (1.3-7.7); Neutrophils % (A) 82 %; Platelet Count 301 k/uL (150-450); RDW 14.7 % (11.5-15.5); WBC 15.8 k/uL (3.8-10.6)
[2019-03-16] MEDS: ACETAMINOPHEN TAB 325 MG TAB PO PRN ×3 (08:41→22:29)
[2019-03-16] MEDS: SENNOSIDES-DOCUSATE SODIUM 1 EACH TAB PO SCH ×2 (08:41→20:30)
--- NOTE | 2019-03-16 09:01 | P.PNOBGPC ---
Subjective - Subjective Patient reports: Reports appetite normal, Reports voiding normally, Reports pain well controlled, Reports ambulating normally : doing well Objective - Vital Signs Latest vital signs: Vital Signs Temp Pulse Resp BP Pulse Ox 03/16/19 06:00 14 03/16/19 04:00 98.8 F 66 16 99/55 98 03/16/19 02:00 16 03/16/19 00:00 98.1 F 72 16 104/56 98 03/15/19 22:00 16 03/15/19 20:00 98.5 F 58 L 16 100/51 03/15/19 18:00 14 03/15/19 15:12 97.8 F 61 14 106/81 03/15/19 14:00 16 03/15/19 10:50 74 16 126/58 97 03/15/19 10:18 96.7 F L 55 L 14 119/55 96 03/15/19 09:50 97.3 F L 63 14 126/59 98 03/15/19 09:35 59 L 14 136/63 97 03/15/19 09:33 14 98 03/15/19 09:20 97.6 F 66 16 109/61 96 03/15/19 09:05 68 16 114/58 97 Intake and Output 03/15/19 03/16/19 03/16/19 22:59 06:59 14:59 Intake Total 100 Output Total 1100 450 Balance -1100 -350 Intake: Oral 100 Output: Urine 1100 450 Other: Voiding Method Indwelling Catheter Indwelling Catheter # Voids 1 1 - Exam Extremities: Present: normal Abdomen: Present: normal appearance, soft. Absent: distention, tenderness Incision: Present: normal, dry, intact Uterus: Present: normal, firm (The uterine fundus is tonic and nontender below the umbilicus.) - Labs Labs: Abnormal Lab Results - Last 24 Hours (Table) 03/16/19 Range/Units 06:32 WBC 15.8 H (3.8-10.6) k/uL Neutrophils # 12.9 H (1.3-7.7) k/uL Assessment and Plan (1) Previous section Current Visit: Yes Status: Acute Code(s): Z98.891 - HISTORY OF UTERINE SCAR FROM PREVIOUS SURGERY SNOMED Code(s): 461712861 (2) Family planning Current Visit: Yes Status: Acute Code(s): Z30.09 - ENCOUNTER FOR OTH GENERAL CNSL AND ADVICE ON CONTRACEPTION SNOMED Code(s): 493512805 (3) Active labor at term Current Visit: Yes Status: Acute Code(s): TDC4180 - SNOMED Code(s): 95941662 (4) S/P section Current Visit: Yes Status: Acute Code(s): Z98.891 - HISTORY OF UTERINE SCAR FROM PREVIOUS SURGERY SNOMED Code(s): 051207329 Plan: Continue routine postoperative care. I would anticipate discharge home tomorrow pending no complications. I have encouraged the patient ambulate in the h allways routinely.
--- NOTE | 2019-03-16 12:32 | P.PN ---
Progress Note - Text Anesthesia POD 1, 0 650. Patient is status post section under spinal anesthesia with intra-thecal preservative free morphine the 100 g. Minimal pruritus, excellent post-op analgesia, and no headache or other complications.
[2019-03-16] MEDS: CITALOPRAM HYDROBROMIDE 10 MG TAB PO SCH ×2 (13:05→21:52)
[2019-03-17] MEDS: IBUPROFEN 600 MG TAB PO PRN ×2 (01:37→07:45)
[2019-03-17] MEDS: SENNOSIDES-DOCUSATE SODIUM 1 EACH TAB PO SCH (07:46)
[2019-03-17 09:55] VITALS: BP 115/55; PULSE 55; RESP 18; TEMP 98
[2019-03-17] MEDS: CITALOPRAM HYDROBROMIDE 10 MG TAB PO SCH (09:55)
--- NOTE | 2019-03-17 11:49 | P.DS ---
Providers Date of admission: 03/15/19 06:45 Expected date of discharge: 03/17/19 Attending physician: Palmer Lenz Primary care physician: Stated None - Discharge Diagnosis(es) (1) Previous section Current Visit: Yes Status: Acute (2) Family planning Current Visit: Yes Status: Acute (3) Active labor at term Current Visit: Yes Status: Acute (4) S/P section Current Visit: Yes Status: Acute Hospital Course: The patient is a 24-year-old 4 para 3003 with 2 previous sections who presented to labor and delivery in active labor with all signs reassuring. Her was uncomplicated though she had late presentation for care. She had requested tubal ligation with her section and consented to this in the office. She additionally was known to be group B strep positive. On labor and delivery, she was taken the operating room where she underwent a an uncomplicated repeat low transverse section with intraoperative bilateral tubal occlusion with Filshie clips. Her postoperative course was unremarkable with vital signs or any stable and her temperature was afebrile throughout. She was deemed stable for discharge on postoperative day #2 was discharged home to follow-up in the office in 2 weeks for an incision check and 6 weeks routinely. Discharge instructions included calling for any significantly increased bleeding or foul-smelling lochia, significantly increased fever abdominal pain, perineal complaints, breast complaints, incisional complaints, or anything else that concerned her. She was additionally instructed to have nothing in the vagina for at least 6 weeks time to include intercourse and to abstain from any heavy lifting over the same period of time. She was lastly instructed to do no driving until off of all pain medications or 2 weeks' time, whichever came first. She understood her instructions and agrees to follow up as noted above. Discharge medications included a prescription for Tylenol No. 3, 1-2 by mouth every 6 hours when necessary pain, #20 dispensed with no refills. She otherwise was to use kalx-aqf-yoymgnm analgesic pain medications as needed. Maternal blood type is O+ and rubella status is immune. Procedures: #1. Repeat low transverse section #2. Intraoperative bilateral tubal occlusion with Filshie clips. Patient Condition at Discharge: Stable Plan - Discharge Summary New Discharge Prescriptions: No Action Citalopram Hydrobromide [CeleXA] 0.5 tab PO BID Discharge Medication List Citalopram Hydrobromide [CeleXA] 0.5 tab PO BID 03/13/19 [History] Follow up Appointment(s)/Referral(s): Palmer Lenz MD [STAFF PHYSICIAN] - 2 Weeks Discharge Disposition: HOME SELF-CARE
[2019-03-17] MEDS: ACETAMINOPHEN TAB 325 MG TAB PO PRN (11:58)
== END 2019-03-17 13:00 | disposition home or self-care (01) | DRG 785 ==
LOC: 4FBP 06:45
PROVIDERS: ADMIT Obstetrics & Gynecology; ATTEND Obstetrics & Gynecology
PROC: 0UL70CZ Occlusion of Bilateral Fallopian Tubes with Extraluminal Device, Open Approach (ICD-10-PCS; 2019-03-15)
PROC: 10D00Z1 Extraction of Products of Conception, Low, Open Approach (ICD-10-PCS; principal; 2019-03-15 07:45)
DX: O34.211 Maternal care for low transverse scar from previous cesarean delivery (principal); O99.824 Streptococcus B carrier state complicating childbirth; O99.284 Endocrine, nutritional and metabolic diseases complicating childbirth; E07.9 Disorder of thyroid, unspecified; O99.62 Diseases of the digestive system complicating childbirth; K21.9 Gastro-esophageal reflux disease without esophagitis; F41.9 Anxiety disorder, unspecified; O99.344 Other mental disorders complicating childbirth; K66.0 Peritoneal adhesions (postprocedural) (postinfection); N85.8 Other specified noninflammatory disorders of uterus; Z3A.39 39 weeks gestation of pregnancy; Z37.0 Single live birth; Z30.2 Encounter for sterilization; Z87.891 Personal history of nicotine dependence; Z82.49 Family history of ischemic heart disease and other diseases of the circulatory system
CPT/HCPCS: 85025; 86850; 86900; 86901

== ENCOUNTER → 2021-03-13 | Outpatient (CLI) | payer OTHER | END | disposition home or self-care (01) | LOC: LABWHC1 10:40 | PROVIDERS: ATTEND Obstetrics & Gynecology | DX: O00.109 Unspecified tubal pregnancy without intrauterine pregnancy (principal); Z3A.00 Weeks of gestation of pregnancy not specified | CPT/HCPCS: 36415; 84702 ==

== ENCOUNTER → 2021-03-16 | Outpatient (CLI) | payer OTHER | END | disposition home or self-care (01) | LOC: LABWHC1 12:51 | PROVIDERS: ATTEND Obstetrics & Gynecology | DX: O00.109 Unspecified tubal pregnancy without intrauterine pregnancy (principal); Z3A.00 Weeks of gestation of pregnancy not specified | CPT/HCPCS: 36415; 84702 ==

== ENCOUNTER 2023-07-27 23:01 | Emergency (ER) | payer OTHER ==
--- NOTE | 2023-07-27 23:49 | ED ---
Upper Extremity HPI - General Source: patient, RN notes reviewed <Betsey Campos - Last Filed: 07/27/23 23:48> <Brandon Lynch - Last Filed: 07/28/23 04:12> - General Stated Complaint: Right neck shoulder and head pain Time Seen by Provider: 07/27/23 23:48 - History of Present Illness Initial Comments: Patient is a 28-year-old female presented ER with chief complaint of right sided neck and shoulder pain. Patient states she did a cartwheel and has been experiencing pain since. She states that the pain does radiate up her neck and gives her an excruciating headache. Patient denies any fevers or chills. (Betsey Campos) 28-year-old female presents to the ED with a chief complaint of right shoulder pain and right neck pain. Patient states that she did a cartwheel 5 days ago and since then has had pain of her right neck/shoulder. States that this pain is also giving her a headache. No other symptoms at this time. No other injuries at this time. No other complaints. (Brandon Lynch) - Related Data Home Medications Medication Instructions Recorded Confirmed Citalopram Hydrobromide [CeleXA] 0.5 tab PO BID 03/13/19 03/15/19 Allergies Allergy/AdvReac Type Severity Reaction Status Date / Time No Known Allergies Allergy Verified 07/28/23 01:12 Review of Systems ROS Other: All systems not noted in ROS Statement are negative. <Betsey Campos - Last Filed: 07/27/23 23:48> ROS Other: All systems not noted in ROS Statement are negative. <Brandon Lynch - Last Filed: 07/28/23 04:12> ROS Statement: Those systems with pertinent positive or pertinent negative responses have been documented in the HPI. Past Medical History Past Medical History: No Reported History Additional Past Medical History / Comment(s): GERD WITH , CONSTIPATION., CURRENT - SCHEDULED. enlarged thyroid History of Any Multi-Drug Resistant Organisms: None Reported Past Surgical History: Section Additional Past Surgical History / Comment(s): x3 Past Anesthesia/Blood Transfusion Reactions: Postoperative Nausea & Vomiting (PONV) Additional Past Anesthesia/Blood Transfusion Reaction / Comment(s): "high spinal last time" Past Psychological History: Anxiety Additional Psychological History / Comment(s): on celexa Past Alcohol Use History: None Reported Additional Past Alcohol Use History / Comment(s): QUIT SMOKING 1 1/2 YEARS AGO, SMOKED FOR 1 YEAR. Past Drug Use History: None Reported - Past Family History Father Family Medical History: Myocardial Infarction ([place]) <Betsey Campos - Last Filed: 07/27/23 23:48> General Exam <Betsey Campos - Last Filed: 07/27/23 23:48> General appearance: alert, in no apparent distress Eye exam: Present: normal appearance, PERRL, EOMI Neck exam: Present: normal inspection Respiratory exam: Present: normal lung sounds bilaterally Cardiovascular Exam: Present: regular rate, normal rhythm Extremities exam: Present: other (Strength and Sensation equal and intact in bilateral upper extremities. Ambulates without difficulty.) Neurological exam: Present: alert, oriented X3, CN II-XII intact Skin exam: Present: warm, dry <Brandon Lynch - Last Filed: 07/28/23 04:12> - General Exam Comments Initial Comments: Visual Physical Exam Vital signs reviewed General: Well-appearing, nontoxic, no acute distress. Head: Normocephalic, atraumatic Eyes: PERRLA, EOMI ENT: Airway patent Chest: Nonlabored breathing Skin: No visual rash, normal skin tone Neuro: Alert and oriented 3 Musculoskeletal: No gross abnormalities (Betsey Campos) Course Vital Signs 07/28/23 01:12 Temperature 97.9 F Pulse Rate 85 Respiratory 18 Rate Blood Pressure 115/68 O2 Sat by Pulse 98 Oximetry Medical Decision Making <Betsey Campos - Last Filed: 07/27/23 23:48> <Brandon Lynch - Last Filed: 07/28/23 04:12> - Medical Decision Making I performed the quick note portion of the exam. Electronically signed by Betsey Campos PA-C (Betsey Campos) Was pt. sent in by a medical professional or institution ([facility], DIRECTOR OF ASSESSMENT, urgent care, hospital, or long-term...) When possible be specific @ -No Did you speak to anyone other than the patient for history (EMS, parent, family, police, friend...)? What history was obtained from this source @ -No Did you review nursing and triage notes (agree or disagree)? Why? @ -I reviewed and agree with nursing and triage notes Were old charts reviewed (outside hosp., previous admission, EMS record, old EKG, old radiological studies, urgent care reports/EKG's, long-term records)? Report findings @ -No old charts were reviewed Differential Diagnosis (chest pain, altered mental status, abdominal pain women, abdominal pain men, vaginal bleeding, weakness, fever, dyspnea, syncope, headache, dizziness, GI bleed, back pain, seizure, CVA, palpatations, mental health, musculoskeletal)? @ -Differential Musculoskeletal Muscular strain, contusion, ligament sprain, fracture, arthritis, septic arthritis, bursitis, cellulitis, muscle spasm, nerve compression, DVT, arterial occlusion, herpes zoster, electrolyte abnormality, tumor.... This is not meant to be in all inclusive list EKG interpreted by me (3pts min.). @ -None X-rays interpreted by me (1pt min.). @ -X-rays of the right shoulder and neck interpreted by me showing no evidence of fracture or other acute finding. CT interpreted by me (1pt min.). @ -None done U/S interpreted by me (1pt. min.). @ -None done What testing was considered but not performed or refused? (CT, X-rays, U/S, labs)? Why? @ -None What meds were considered but not given or refused? Why? @ -None Did you discuss the management of the patient with other professionals (professionals i.e. , PA, DIRECTOR OF ASSESSMENT, lab, RT, psych nurse, adoption social worker, client services coordinator, teacher, agricultural loan officer, outsole caser)? Give summary @ -No Was smoking cessation discussed for >3mins.? @ -No Was critical care preformed (if so, how long)? @ -No Were there social determinants of health that impacted care today? How? (Homelessness, low income, unemployed, alcoholism, drug addiction, transportation, low edu. Level, literacy, decrease access to med. care, retirement, rehab)? @ -No Was there de-escalation of care discussed even if they declined (Discuss DNR or withdrawal of care, Hospice)? DNR status @ -No What co-morbidities impacted this encounter? (DM, HTN, Smoking, COPD, CAD, Cancer, CVA, ARF, Chemo, Hep., AIDS, mental health diagnosis, sleep apnea, morbid obesity)? @ -None Was patient admitted / discharged? Hospital course, mention meds given and route, prescriptions, significant lab abnormalities, going to OR and other pertinent info. @ -Discharge 28-year-old female presented to the ED with complaints of right shoulder/neck pain ever since doing a cartwheel 5 days ago. He studies at this time are unremarkable. Exam shows cranial nerves II through XII intact. Strength and sensation equal and intact of bilateral upper extremities. Patient discharged home in stable condition. Advised follow-up with her PCP. Discussed return precautions with patient who verbalizes agreement. Undiagnosed new problem with uncertain prognosis? @ -No Drug Therapy requiring intensive monitoring for toxicity (Heparin, Nitro, Insulin, Cardizem)? @ -No Were any procedures done? @ -No Diagnosis/symptom? @ -Right shoulder pain, neck pain Acute, or Chronic, or Acute on Chronic? @ -Acute Uncomplicated (without systemic symptoms) or Complicated (systemic symptoms)? @ -Uncomplicated Side effects of treatment? @ -No Exacerbation, Progression, or Severe Exacerbation? @ -No Poses a threat to life or bodily function? How? (Chest pain, [place], [place], pneumonia, PE, COPD, DKA, ARF, appy, cholecystitis, CVA, Diverticulitis, Homicidal, Suicidal, threat to staff... and all critical care pts) @ -No (Brandon Lynch) Disposition <Betsey Campos - Last Filed: 07/27/23 23:48> Is patient prescribed a controlled substance at d/c from ED?: No Time of Disposition: 04:11 <Brandon Lynch - Last Filed: 07/28/23 04:12> Clinical Impression: Shoulder pain, Neck pain Disposition: HOME SELF-CARE Condition: Good Additional Instructions: Please return to the Emergency Department if symptoms worsen or any other concerns. Please follow up with your PCP. Referrals: Maria De Jesus Perera FNPBC [Primary Care Provider] - 1-2 days
[2023-07-28 01:24] VITALS: BP 115/68; PULSE 85; RESP 18; TEMP 97.9
--- NOTE | 2023-07-28 01:49 | XR ---
EXAM: XR Cervical Spine, 2 or 3 Views CLINICAL HISTORY: ITS.REASON XR Reason: pain TECHNIQUE: Frontal and lateral views of the cervical spine. COMPARISON: No relevant prior studies available. FINDINGS: Vertebrae: No acute fracture. Normal sagittal alignment. Disc spaces: No significant narrowing. Soft tissues: Unremarkable. IMPRESSION: No acute osseous findings.
--- NOTE | 2023-07-28 02:49 | XR ---
EXAM: XR Right Shoulder Complete, 2 or More Views CLINICAL HISTORY: ITS.REASON XR Reason: pain TECHNIQUE: Two or more views of the right shoulder. COMPARISON: No relevant prior studies available. FINDINGS: Bones/joints: Unremarkable. No acute fracture. No dislocation. Soft tissues: Unremarkable. IMPRESSION: Normal right shoulder x-rays.
== END 2023-07-28 04:15 | disposition home or self-care (01) ==
LOC: EC 23:01
DX: M25.511 Pain in right shoulder (principal); M54.2 Cervicalgia; F41.9 Anxiety disorder, unspecified; Z79.899 Other long term (current) drug therapy
CPT/HCPCS: 72050; 99283

== ENCOUNTER 2023-10-27 10:17 | Emergency (ER) | payer OTHER ==
[2023-10-27 10:59] VITALS: TEMP 98
[2023-10-27 11:11] LABS: Basophils # (A) 0.1 k/uL (0-0.2); Basophils % (A) 1 %; Eosinophils # (A) 0.2 k/uL (0-0.7); Eosinophils % (A) 1 %; HCT 51.6 % (34.0-46.0); HGB 16.7 gm/dL (11.4-16.0); Lymphocytes # (A) 3.4 k/uL (1.0-4.8); Lymphocytes % (A) 25 %; MCH 29.5 pg (25.0-35.0); MCHC 32.4 g/dL (31.0-37.0); Mean Platelet Volume 6.9; Monocytes # (A) 0.3 k/uL (0-1.0); Monocytes % (A) 2 %; Neutrophils # (A) 9.7 k/uL (1.3-7.7); Neutrophils % (A) 70 %; Platelet Count 355 k/uL (150-450); RBC 5.67 m/uL (3.80-5.40); RDW 12.4 % (11.5-15.5); WBC 13.9 k/uL (3.8-10.6)
[2023-10-27] MEDS: SODIUM CHLORIDE 0.9% 1,000 ML IV STA (11:18)
[2023-10-27 11:21] LABS: ALT 18 U/L (4-34); AST 23 U/L (14-36); African American GFR (CKD) >90 (>60 ml/min/1.73 sqM); Albumin 4.7 g/dL (3.5-5.0); Alkaline Phosphatase 84 U/L (38-126); Anion Gap 10 mmol/L; Blood Urea Nitrogen 7 mg/dL (7-17); Calcium 9.7 mg/dL (8.4-10.2); Carbon Dioxide 23 mmol/L (22-30); Chloride 107 mmol/L (98-107); Glucose 93 mg/dL (74-99); Magnesium 1.8 mg/dL (1.6-2.3); Non-African American GFR(CKD) >90 (>60 ml/min/1.73 sqM); Potassium 4.1 mmol/L (3.5-5.1); Sodium 140 mmol/L (137-145); Total Bilirubin 0.5 mg/dL (0.2-1.3); Total Protein 8.1 g/dL (6.3-8.2)
--- NOTE | 2023-10-27 11:23 | ED ---
Arrhythmia/Palpitations HPI - General Chief Complaint: Arrhythmia/Palpitations Stated Complaint: Earache in R ear, chest pain Time Seen by Provider: 10/27/23 10:41 Source: patient, RN notes reviewed Mode of arrival: ambulatory Limitations: no limitations - History of Present Illness Initial Comments: This is a 28-year-old female who presents to the emergency department for palpitations. Patient states that she started treatment for a right-sided ear i nfection about 4 days ago. She was given a prescription for Augmentin, ibuprofen, and prednisone. She does not often like to take steroids as she does not like how they make her feel. States that she initially only took ibuprofen and the Augmentin, and did seem to improve. The following day she took a dose of prednisone, and over the last couple of days she started to notice that her right ear feels very full and she is having difficulty hearing out of the ear and also has a lot of ringing in the ear. This morning she woke up with palpitations, which she states may be from the steroids. Also noticed bright red blood in her stool this morning, and states that she has a history of hemorr hoids, which may have been the cause of this, but she is not entirely sure. MD Complaint: palpitations - Related Data Home Medications Medication Instructions Recorded Confirmed Citalopram Hydrobromide [CeleXA] 0.5 tab PO BID 03/13/19 03/15/19 Allergies Allergy/AdvReac Type Severity Reaction Status Date / Time venlafaxine [From Effexor] Allergy Rash/Hives Verified 10/27/23 10:33 Review of Systems ROS Statement: Those systems with pertinent positive or pertinent negative responses have been documented in the HPI. ROS Other: All systems not noted in ROS Statement are negative. Past Medical History Past Medical History: No Reported History Additional Past Medical History / Comment(s): GERD WITH , CONSTIPATION., CURRENT - SCHEDULED. enlarged thyroid History of Any Multi-Drug Resistant Organisms: None Reported Past Surgical History: Section Additional Past Surgical History / Comment(s): x3 Past Anesthesia/Blood Transfusion Reactions: Postoperative Nausea & Vomiting (PONV) Additional Past Anesthesia/Blood Transfusion Reaction / Comment(s): "high spinal last time" Past Psychological History: Anxiety Smoking Status: Current every day smoker Past Alcohol Use History: Occasional Past Drug Use History: None Reported - Past Family History Father Family Medical History: Myocardial Infarction ([place]) General Exam Limitations: no limitations General appearance: alert, in no apparent distress Head exam: Present: atraumatic, normocephalic, normal inspection ENT exam: Present: other (Right TM erythema and bulging.) Respiratory exam: Present: normal lung sounds bilaterally. Absent: respiratory distress, wheezes, rales, rhonchi, stridor Cardiovascular Exam: Present: regular rate, normal rhythm, normal heart sounds. Absent: systolic murmur, diastolic murmur, rubs, gallop, clicks GI/Abdominal exam: Present: soft, normal bowel sounds. Absent: distended, tenderness, guarding, rebound, rigid Rectal exam: Present: other (1 external hemorrhoid. No active bleeding.) Neurological exam: Present: alert, oriented X3, CN II-XII intact Psychiatric exam: Present: normal affect, normal mood Skin exam: Present: warm, dry, intact, normal color. Absent: rash Course Vital Signs 10/27/23 10/27/23 10:30 13:04 Temperature 98.0 F Pulse Rate 82 81 Respiratory 20 14 Rate Blood Pressure 123/79 122/67 O2 Sat by Pulse 99 100 Oximetry Medical Decision Making - Medical Decision Making This is a 28 year old female who presents to the emergency department for palpitations. Was pt. sent in by a medical professional or institution? @ -No Did you speak to anyone other than the patient for history? @ -No Did you review nursing and triage notes? @ -Yes, and I agree, it is accurate with regards to the patient's symptoms. Were old charts reviewed? @ -No Differential Diagnosis? @ -Differential Palpitations: Ventricular arrhythmias, atrial arrhythmias, myocardial infarction, anemia, thyrotoxicosis, electrolyte imbalance, hypokalemia, pulmonary embolism, pulmonary disease, drugs, alcohol, anxiety, stress.... This is not meant to be an all-inclusive list. EKG interpreted by me (3pts min.)? @ -EKG interpreted by me demonstrating the following: Sinus rhythm. Ventricular rate 82 bpm, IL interval 137 ms, QRS duration 94 ms, QTc 410 ms. X-rays interpreted by me (1pt min.)? @ -Chest x-ray obtained, my interpretation identifies no localized consolidations or infiltrates. CT interpreted by me (1pt min.)? @ -Not obtained U/S interpreted by me (1pt. min.)? @ -Not obtained What testing was considered but not performed? (CT, X-rays, U/S, labs)? Why? @ -None What meds were considered but not given? Why? @ -None Did you discuss the management of the patient with other professionals? @ -No Did you reconcile home meds? @ -No Was smoking cessation discussed for >3mins.? @ -No Was critical care preformed (if so, how long)? @ -No Were there social determinants of health that impacted care today? How? (Homelessness, low income, unemployed, alcoholism, drug addiction, transportation, low edu. Level, literacy, decrease access to med. care, [facility], rehab)? @ -No Was there de-escalation of care discussed even if they declined? (Discuss DNR or withdrawal of care, Hospice)? @ -No What co-morbidities impacted this encounter? (DM, HTN, Smoking, COPD, CAD, Cancer, CVA, Hep., AIDS, mental health diagnosis, sleep apnea, morbid obesity)? @ -Smoking Was patient admitted / discharged? @ -Discharged. Lab work demonstrates mild leukocytosis, which is likely secondary to steroid use. Lab work was otherwise unremarkable. Chest x-ray reveals no acute process. Physical examination does demonstrate persistent right otitis media. There is no evidence of progression to otitis externa. Advised she discontinue the steroid use, due to the likelihood of it causing her to experience the palpitations. She will continue taking the Augmentin and ibuprofen for management of the otitis media. Advise she begin taking a decongestant such as Claritin to help with the hearing loss. However I advised that it may take the infection clearing up before having notable improvement in the hearing loss. Patient discharged home in stable condition and advised to follow-up with her primary care provider. Undiagnosed new problem with uncertain prognosis? @ -None Drug Therapy requiring intensive monitoring for toxicity (Heparin, Nitro, Insulin, Cardizem)? @ -None Were any procedures done? @ -None Diagnosis/symptom? @ -Otitis media, palpitations Acute, or Chronic, or Acute on Chronic? @ -Acute Uncomplicated (without systemic symptoms) or Complicated (systemic symptoms)? @ -Uncomplicated Side effects of treatment? @ -None Exacerbation, Progression, or Severe Exacerbation] @ -Not applicable Poses a threat to life or bodily function? @ -No Return precautions reviewed in depth, the patient is instructed to return to the emergency department with any new, worsening, or concerning symptoms. Patient verbalized understanding. This case was discussed in detail with the attending ED physician, Dr. Dumont. Presentation, findings, and treatment plan discussed in detail as well. - Lab Data Result diagrams: 10/27/23 11:04 10/27/23 11:04 Lab Results 10/27/23 10/27/23 10/27/23 Range/Units 11:04 11:04 11:04 WBC 13.9 H (3.8-10.6) k/uL RBC 5.67 H (3.80-5.40) m/uL Hgb 16.7 H (11.4-16.0) gm/dL Hct 51.6 H (34.0-46.0) % MCV 91.0 (80.0-100.0) fL MCH 29.5 (25.0-35.0) pg MCHC 32.4 (31.0-37.0) g/dL RDW 12.4 (11.5-15.5) % Plt Count 355 (150-450) k/uL MPV 6.9 Neutrophils % 70 % Lymphocytes % 25 % Monocytes % 2 % Eosinophils % 1 % Basophils % 1 % Neutrophils # 9.7 H (1.3-7.7) k/uL Lymphocytes # 3.4 (1.0-4.8) k/uL Monocytes # 0.3 (0-1.0) k/uL Eosinophils # 0.2 (0-0.7) k/uL Basophils # 0.1 (0-0.2) k/uL PT 10.4 (10.0-12.5) sec INR 0.9 (<1.2) APTT 27.4 (22.0-30.0) sec Sodium 140 (137-145) mmol/L Potassium 4.1 (3.5-5.1) mmol/L Chloride 107 (98-107) mmol/L Carbon Dioxide 23 (22-30) mmol/L Anion Gap 10 mmol/L BUN 7 (7-17) mg/dL Creatinine 0.63 (0.52-1.04) mg/dL Est GFR (CKD-EPI)AfAm >90 (>60 ml/min/1.73 sqM) Est GFR (CKD-EPI)NonAf >90 (>60 ml/min/1.73 sqM) Glucose 93 (74-99) mg/dL Calcium 9.7 (8.4-10.2) mg/dL Magnesium 1.8 (1.6-2.3) mg/dL Total Bilirubin 0.5 (0.2-1.3) mg/dL AST 23 (14-36) U/L ALT 18 (4-34) U/L Alkaline Phosphatase 84 (38-126) U/L Troponin I (0.000-0.034) ng/mL Total Protein 8.1 (6.3-8.2) g/dL Albumin 4.7 (3.5-5.0) g/dL 10/27/23 Range/Units 11:04 WBC (3.8-10.6) k/uL RBC (3.80-5.40) m/uL Hgb (11.4-16.0) gm/dL Hct (34.0-46.0) % MCV (80.0-100.0) fL MCH (25.0-35.0) pg MCHC (31.0-37.0) g/dL RDW (11.5-15.5) % Plt Count (150-450) k/uL MPV Neutrophils % % Lymphocytes % % Monocytes % % Eosinophils % % Basophils % % Neutrophils # (1.3-7.7) k/uL Lymphocytes # (1.0-4.8) k/uL Monocytes # (0-1.0) k/uL Eosinophils # (0-0.7) k/uL Basophils # (0-0.2) k/uL PT (10.0-12.5) sec INR (<1.2) APTT (22.0-30.0) sec Sodium (137-145) mmol/L Potassium (3.5-5.1) mmol/L Chloride (98-107) mmol/L Carbon Dioxide (22-30) mmol/L Anion Gap mmol/L BUN (7-17) mg/dL Creatinine (0.52-1.04) mg/dL Est GFR (CKD-EPI)AfAm (>60 ml/min/1.73 sqM) Est GFR (CKD-EPI)NonAf (>60 ml/min/1.73 sqM) Glucose (74-99) mg/dL Calcium (8.4-10.2) mg/dL Magnesium (1.6-2.3) mg/dL Total Bilirubin (0.2-1.3) mg/dL AST (14-36) U/L ALT (4-34) U/L Alkaline Phosphatase (38-126) U/L Troponin I <0.012 (0.000-0.034) ng/mL Total Protein (6.3-8.2) g/dL Albumin (3.5-5.0) g/dL - Radiology Data Radiology results: report reviewed, image reviewed Disposition Clinical Impression: Otitis media, Palpitations, Nicotine dependence Disposition: HOME SELF-CARE Instructions (If sedation given, give patient instructions): Heart Palpitations (ED), Ear Infection (ED) Additional Instructions: Return to the emergency department with any new, worsening, or concerning symptoms. Continue taking the Augmentin and Ibuprofen for the ear infection. Use the Flonase nasal spray as 2 sprays in each nostril daily for 7 days. After 7 days, use 1 spray in each nostril daily. You can stop using this when the hearing and ringing in the ear improves. Start using a daily decongestant such as [id number] Claritin or Jennifer. Follow up with your primary care provider in 1-2 days. Is patient prescribed a controlled substance at d/c from ED?: No Referrals: Maria De Jesus Perera [facility] [Primary Care Provider] - 1-2 days Time of Disposition: 12:51
[2023-10-27 11:24] LABS: INR 0.9 (<1.2); Partial Thromboplastin Time 27.4 sec (22.0-30.0); Prothrombin Time 10.4 sec (10.0-12.5)
--- NOTE | 2023-10-27 12:34 | XR ---
EXAMINATION TYPE: XR chest 2V DATE OF EXAM: 10/27/2023 11:57 AM CLINICAL INDICATION:Female, 28 years old with history of dysrhythmia; [facility] COMPARISON: None TECHNIQUE: XR chest 2V Frontal and lateral views of the chest. FINDINGS: Lungs/Pleura: There is no evidence of pleural effusion, focal consolidation, or pneumothorax. Pulmonary vascularity: Unremarkable. Heart/mediastinum: Cardiomediastinal silhouette is unremarkable. Musculoskeletal: No acute osseous pathology. IMPRESSION: No acute cardiopulmonary disease/process.
[2023-10-27] MEDS: FLUTICASONE 50MCG/SPRAY NASAL 16GM EA NOSTRIL ONE (12:58)
[2023-10-27 13:41] VITALS: BP 122/67; PULSE 81; RESP 14
== END 2023-10-27 13:06 | disposition home or self-care (01) ==
LOC: EC 10:17
DX: R00.2 Palpitations (principal); H66.91 Otitis media, unspecified, right ear; F17.200 Nicotine dependence, unspecified, uncomplicated; K64.4 Residual hemorrhoidal skin tags; Z88.8 Allergy status to other drugs, medicaments and biological substances
CPT/HCPCS: 36415; 71046; 80053; 83735; 84484; 85025; 85610; 85730; 93005; 96360; 99285

== ENCOUNTER 2025-02-09 00:30 | Emergency (ER) | payer OTHER ==
[2025-02-09 00:42] VITALS: RESP 18
[2025-02-09 01:39] LABS: Basophils # (A) 0.07 10*3/uL (0.00-0.10); Basophils % (A) 0.4 %; Eosinophils # (A) 0.42 10*3/uL (0.04-0.35); Eosinophils % (A) 2.5 %; HCT 40.2 % (37.2-46.3); HGB 13.8 g/dL (12.0-15.0); Lymphocytes # (A) 2.77 10*3/uL (0.90-5.00); Lymphocytes % (A) 16.6 %; MCH 29.6 pg (27.0-32.0); MCHC 34.3 g/dL (32.0-37.0); MCV 86.1 fL (80.0-97.0); Monocytes # (A) 0.61 10*3/uL (0.20-1.00); Monocytes % (A) 3.6 %; Neutrophils # (A) 12.78 10*3/uL (1.80-7.70); Neutrophils % (A) 76.5 %; Platelet Count 360 10*3/uL (140-440); RBC 4.67 10*6/uL (4.10-5.20); RDW 12.7 % (11.5-14.5); WBC 16.72 10*3/uL (4.50-10.00)
[2025-02-09 01:41] LABS: Bilirubin,Urine Negative (Negative); Blood,Urine Negative (Negative); Color,Urine Colorless; Glucose,Urine (UA) Negative (Negative); Ketones,Urine Negative (Negative); Leukocyte Esterase,Urine Negative (Negative); Nitrite,Urine Negative (Negative); PH, Urine 6.0 (5.0-8.0); Protein,Urine Negative (Negative); Specific Gravity,Urine 1.005 (1.001-1.035); Urobilinogen,Urine <2.0 mg/dL (<2.0)
[2025-02-09 01:54] LABS: ALT 30 U/L (4-34); AST 25 U/L (14-36); African American GFR (CKD) >90 (>60 ml/min/1.73 sqM); Albumin 4.1 g/dL (3.5-5.0); Alkaline Phosphatase 74 U/L (38-126); Anion Gap 11 mmol/L; Blood Urea Nitrogen 14 mg/dL (7-17); Calcium 9.4 mg/dL (8.4-10.2); Carbon Dioxide 23 mmol/L (22-30); Chloride 105 mmol/L (98-107); Glucose 127 mg/dL (74-99); Lipase 99 U/L (23-300); Magnesium 1.8 mg/dL (1.6-2.3); Non-African American GFR(CKD) >90 (>60 ml/min/1.73 sqM); Potassium 3.9 mmol/L (3.5-5.1); Sodium 139 mmol/L (137-145); Total Protein 7.0 g/dL (6.3-8.2)
[2025-02-09 01:59] LABS: INR 0.9 (<1.2); Partial Thromboplastin Time 26.1 sec (22.0-30.0); Prothrombin Time 10.2 sec (10.0-12.5)
--- NOTE | 2025-02-09 02:19 | ED ---
General Adult HPI - General Chief complaint: Chest Pain Stated complaint: Chest Pressure, Anxiety, Dizziness Source: patient, EMS Mode of arrival: EMS - Related Data Home Medications Medication Instructions Recorded Confirmed Citalopram Hydrobromide [CeleXA] 0.5 tab PO BID 03/13/19 03/15/19 Allergies Allergy/AdvReac Type Severity Reaction Status Date / Time venlafaxine [From Effexor] Allergy Rash/Hives Verified 10/27/23 10:33 Review of Systems ROS Statement: Those systems with pertinent positive or pertinent negative responses have been documented in the HPI. ROS Other: All systems not noted in ROS Statement are negative. Past Medical History Past Medical History: No Reported History Additional Past Medical History / Comment(s): GERD WITH , CONSTIPATION., CURRENT - SCHEDULED. enlarged thyroid History of Any Multi-Drug Resistant Organisms: None Reported Past Surgical History: Section Additional Past Surgical History / Comment(s): x3 Past Anesthesia/Blood Transfusion Reactions: Postoperative Nausea & Vomiting (PONV) Additional Past Anesthesia/Blood Transfusion Reaction / Comment(s): "high spinal last time" Past Psychological History: Anxiety Smoking Status: Current every day smoker Past Alcohol Use History: Occasional Past Drug Use History: None Reported - Past Family History Father Family Medical History: Myocardial Infarction ([place]) Course Vital Signs 02/09/25 00:34 Temperature 99.2 F Pulse Rate 76 Respiratory 18 Rate Blood Pressure 112/64 O2 Sat by Pulse 97 Oximetry Medical Decision Making - Medical Decision Making Was pt. sent in by a medical professional or institution (, PA, RESIDENTIAL DIRECT SUPPORT PROFESSIONAL, urgent care, hospital, or detention...) When possible be specific @ -[No] Did you speak to anyone other than the patient for history (EMS, parent, family, police, friend...)? What history was obtained from this source @ -[No] Did you review nursing and triage notes (agree or disagree)? Why? @ -[I reviewed and agree with nursing and triage notes] Were old charts reviewed (outside hosp., previous admission, EMS record, old EKG, old radiological studies, urgent care reports/EKG's, detention records)? Report findings @ -[No old charts were reviewed] Differential Diagnosis (chest pain, altered mental status, abdominal pain women, abdominal pain men, vaginal bleeding, weakness, fever, dyspnea, syncope, headache, dizziness, GI bleed, back pain, seizure, CVA, palpatations, mental health, musculoskeletal)? @ -[not applicable] EKG interpreted by me (3pts min.). @ -Yes and demonstrates sinus rhythm with a rate of 77. AR interval 144. QRS 105. QTC of 413. No acute ST segment elevations or depressions X-rays interpreted by me (1pt min.). @ -[None done] CT interpreted by me (1pt min.). @ -[None done] U/S interpreted by me (1pt. min.). @ -[None done] What testing was considered but not performed or refused? (CT, X-rays, U/S, labs)? Why? @ -[None] What meds were considered but not given or refused? Why? @ -[None] Did you discuss the management of the patient with other professionals (professionals i.e. , PA, RESIDENTIAL DIRECT SUPPORT PROFESSIONAL, lab, RT, psych nurse, vp digital marketing social media and crm, park interpretive ranger, teacher, credit review officer, outsole caser)? Give summary @ -[No] Was smoking cessation discussed for >3mins.? @ -[No] Was critical care preformed (if so, how long)? @ -[No] Were there social determinants of health that impacted care today? How? (Homelessness, low income, unemployed, alcoholism, drug addiction, transportation, low edu. Level, literacy, decrease access to med. care, fpc, rehab)? @ -[No] Was there de-escalation of care discussed even if they declined (Discuss DNR or withdrawal of care, Hospice)? DNR status @ -[No] What co-morbidities impacted this encounter? (DM, HTN, Smoking, COPD, CAD, Cancer, CVA, ARF, Chemo, Hep., AIDS, mental health diagnosis, sleep apnea, morbid obesity)? @ -[None] Was patient admitted / discharged? Hospital course, mention meds given and route, prescriptions, significant lab abnormalities, going to OR and other pertinent info. @ -[hospital course] Undiagnosed new problem with uncertain prognosis? @ -[No] Drug Therapy requiring intensive monitoring for toxicity (Heparin, Nitro, Insulin, Cardizem)? @ -[No] Were any procedures done? @ -[No] Diagnosis/symptom? @ -[default] Acute, or Chronic, or Acute on Chronic? @ -[default] Uncomplicated (without systemic symptoms) or Complicated (systemic symptoms)? @ -[default] Side effects of treatment? @ -[No] Exacerbation, Progression, or Severe Exacerbation? @ -[No] Poses a threat to life or bodily function? How? (Chest pain, [place], [place], pneumonia, PE, COPD, DKA, ARF, appy, cholecystitis, CVA, Diverticulitis, Homicidal, Suicidal, threat to staff... and all critical care pts) @ -[No] - Lab Data Result diagrams: 02/09/25 01:30 02/09/25 01:30 Lab Results 02/09/25 02/09/25 02/09/25 Range/Units 01:28 01:28 01:30 WBC 16.72 H (4.50-10.00) 10*3/uL RBC 4.67 (4.10-5.20) 10*6/uL Hgb 13.8 (12.0-15.0) g/dL Hct 40.2 (37.2-46.3) % MCV 86.1 (80.0-97.0) fL MCH 29.6 (27.0-32.0) pg MCHC 34.3 (32.0-37.0) g/dL Plt Count 360 (140-440) 10*3/uL MPV 9.4 L (9.5-12.2) fL Immature Gran % (Auto) 0.4 % Neutrophils % 76.5 % Lymphocytes % 16.6 % Monocytes % 3.6 % Eosinophils % 2.5 % Basophils % 0.4 % Immature Gran # 0.07 H (0.00-0.04) 10*3/uL Neutrophils # 12.78 H (1.80-7.70) 10*3/uL Lymphocytes # 2.77 (0.90-5.00) 10*3/uL Monocytes # 0.61 (0.20-1.00) 10*3/uL Eosinophils # 0.42 H (0.04-0.35) 10*3/uL Basophils # 0.07 (0.00-0.10) 10*3/uL PT (10.0-12.5) sec INR (<1.2) APTT (22.0-30.0) sec D-Dimer (<0.60) mg/L FEU Sodium (137-145) mmol/L Potassium (3.5-5.1) mmol/L Chloride (98-107) mmol/L Carbon Dioxide (22-30) mmol/L Anion Gap mmol/L BUN (7-17) mg/dL Creatinine (0.52-1.04) mg/dL Est GFR (CKD-EPI)AfAm (>60 ml/min/1.73 sqM) Est GFR (CKD-EPI)NonAf (>60 ml/min/1.73 sqM) Glucose (74-99) mg/dL Calcium (8.4-10.2) mg/dL Magnesium (1.6-2.3) mg/dL Total Bilirubin (0.2-1.3) mg/dL AST (14-36) U/L ALT (4-34) U/L Alkaline Phosphatase (38-126) U/L Troponin I (0.000-0.034) ng/mL Total Protein (6.3-8.2) g/dL Albumin (3.5-5.0) g/dL Lipase (23-300) U/L Urine Color Colorless Urine Appearance Clear (Clear) Urine pH 6.0 (5.0-8.0) Ur Specific [place] 1.005 (1.001-1.035) Urine Protein Negative (Negative) Urine Glucose (UA) Negative (Negative) Urine Ketones Negative (Negative) Urine Blood Negative (Negative) Urine Nitrite Negative (Negative) Urine Bilirubin Negative (Negative) Urine Urobilinogen <2.0 (<2.0) mg/dL Ur Leukocyte Esterase Negative (Negative) Urine HCG, Qual Not Detected (Not Detectd) 02/09/25 02/09/25 02/09/25 Range/Units 01:30 01:30 01:30 WBC (4.50-10.00) 10*3/uL RBC (4.10-5.20) 10*6/uL Hgb (12.0-15.0) g/dL Hct (37.2-46.3) % MCV (80.0-97.0) fL MCH (27.0-32.0) pg MCHC (32.0-37.0) g/dL Plt Count (140-440) 10*3/uL MPV (9.5-12.2) fL Immature Gran % (Auto) % Neutrophils % % Lymphocytes % % Monocytes % % Eosinophils % % Basophils % % Immature Gran # (0.00-0.04) 10*3/uL Neutrophils # (1.80-7.70) 10*3/uL Lymphocytes # (0.90-5.00) 10*3/uL Monocytes # (0.20-1.00) 10*3/uL Eosinophils # (0.04-0.35) 10*3/uL Basophils # (0.00-0.10) 10*3/uL PT 10.2 (10.0-12.5) sec INR 0.9 (<1.2) APTT 26.1 (22.0-30.0) sec D-Dimer <0.17 (<0.60) mg/L FEU Sodium 139 (137-145) mmol/L Potassium 3.9 (3.5-5.1) mmol/L Chloride 105 (98-107) mmol/L Carbon Dioxide 23 (22-30) mmol/L Anion Gap 11 mmol/L BUN 14 (7-17) mg/dL Creatinine 0.53 (0.52-1.04) mg/dL Est GFR (CKD-EPI)AfAm >90 (>60 ml/min/1.73 sqM) Est GFR (CKD-EPI)NonAf >90 (>60 ml/min/1.73 sqM) Glucose 127 H (74-99) mg/dL Calcium 9.4 (8.4-10.2) mg/dL Magnesium 1.8 (1.6-2.3) mg/dL Total Bilirubin 0.3 (0.2-1.3) mg/dL AST 25 (14-36) U/L ALT 30 (4-34) U/L Alkaline Phosphatase 74 (38-126) U/L Troponin I <0.012 (0.000-0.034) ng/mL Total Protein 7.0 (6.3-8.2) g/dL Albumin 4.1 (3.5-5.0) g/dL Lipase 99 (23-300) U/L Urine Color Urine Appearance (Clear) Urine pH (5.0-8.0) Ur Specific [place] (1.001-1.035) Urine Protein (Negative) Urine Glucose (UA) (Negative) Urine Ketones (Negative) Urine Blood (Negative) Urine Nitrite (Negative) Urine Bilirubin (Negative) Urine Urobilinogen (<2.0) mg/dL Ur Leukocyte Esterase (Negative) Urine HCG, Qual (Not Detectd) Disposition Clinical Impression: Near syncope Disposition: HOME SELF-CARE Condition: Stable Instructions (If sedation given, give patient instructions): Chest Pain (ED) Additional Instructions: Your labs are all normal. I recommend an echo of your heart, Holter monitoring and possibly a tilt table test. Return for any new or worsening symptoms Is patient prescribed a controlled substance at d/c from ED?: No Referrals: Dang Montemayor MD [Primary Care Provider] - 1-2 days Time of Disposition: 03:21
--- NOTE | 2025-02-09 03:18 | XR ---
EXAM: XR Chest, 2 Views CLINICAL HISTORY: ITS.REASON XR Reason: Chest Pain TECHNIQUE: Frontal and lateral views of the chest. COMPARISON: No relevant prior studies available. FINDINGS: Lungs: No consolidation or mass. Pleural space: No effusion. Heart: No cardiomegaly. Bones/joints: No acute findings. IMPRESSION: No acute cardiopulmonary process.
[2025-02-09 03:48] VITALS: BP 114/51; PULSE 79; TEMP 96.9
== END 2025-02-09 03:48 | disposition home or self-care (01) ==
LOC: EC 00:30
DX: R55 Syncope and collapse (principal); F17.200 Nicotine dependence, unspecified, uncomplicated; Z88.8 Allergy status to other drugs, medicaments and biological substances
CPT/HCPCS: 36415; 71046; 80053; 81003; 81025; 83690; 83735; 84484; 85025; 85379; 85610; 85730; 93005; 99285